=== PATIENT | female | born 1960 | race Two or more races ===

== ENCOUNTER 2023-05-05 19:13 | Emergency (ER) | payer MEDICAID, OTHER ==
[~2023-05-05] VITALS: Ht 160 cm; Wt 55.0 kg
[2023-05-05 20:39] LABS: Basophils # (auto) 0.1 10 ^3/uL (0-0.2); Basophils % (auto) 1.1 % (0.0-2.0); Eosinophils # (auto) 0.3 10 ^3/uL (0-0.8); Eosinophils % (auto) 3.3 % (0.0-7.0); Hematocrit 26.3 % (36.0-46.0); Hemoglobin 8.8 g/dL (12.2-16.2); Lymphocytes # (auto) 2.2 10 ^3/uL (0.4-5.4); Lymphocytes % (auto) 26.5 % (10.0-50.0); Mean Corpuscular Hemoglobin 30.2 pg (28.0-32.0); Mean Corpuscular Hgb Conc. 33.3 g/dL (32.0-36.0); Mean Corpuscular Volume 90.6 fL (80.0-100.0); Monocytes # (auto) 0.7 10 ^3/uL (0-1.3); Monocytes % (auto) 8.9 % (0.0-12.0); Neutrophils # (auto) 4.9 10 ^3/uL (1.6-8.6); Neutrophils % (auto) 60.2 % (37.0-80.0); Red Cell Distribution Width 13.8 % (11.8-14.3); White Blood Cell 8.2 10^3/uL (4.4-10.8)
[2023-05-05 20:50] LABS: Chloride 105 mmol/L (98-107); Potassium 4.1 mmol/L (3.5-5.1); Sodium 138 mmol/L (136-145)
[2023-05-05 20:51] LABS: Anion Gap 11 (5-15); Carbon Dioxide 22 mmol/L (20-30)
[2023-05-05 20:52] LABS: Calcium 8.9 mg/dL (8.5-10.1)
[2023-05-05 20:56] LABS: BUN/Creatinine Ratio 20.7 (10.0-20.0); Glucose 146 mg/dL (74-106)
[2023-05-05 21:27] LABS: Blood Urea Nitrogen 80 mg/dL (9-23)
[2023-05-05 21:35] VITALS: BP 191/78; PULSE 71; RESP 15; TEMP 97.3; O2SAT 99
[2023-05-05] MEDS: ACETAMINOPHEN 500 MG TAB PO ONE (21:35)
[2023-05-05] MEDS: cloNIDine HCL 0.1 MG TAB PO ONE (21:48)
== END 2023-05-05 21:40 | disposition left against medical advice (07) ==
LOC: ER 19:13
DX: N17.9 Acute kidney failure, unspecified (principal); I16.0 Hypertensive urgency; R51.9 Headache, unspecified; R53.1 Weakness; E11.9 Type 2 diabetes mellitus without complications; Z88.0 Allergy status to penicillin
CPT/HCPCS: 36415; 80048; 82962; 84484; 85025; 93005

== ENCOUNTER 2023-11-29 17:50 | Emergency (ER) | payer MEDICAID ==
[~2023-11-29] VITALS: Ht 154.9 cm; Wt 60.0 kg
[2023-11-29 19:30] VITALS: BP 109/46
[2023-11-29 21:03] VITALS: PULSE 55; RESP 14; O2SAT 98
== END 2023-11-29 21:00 | disposition home or self-care (01) ==
LOC: ER 17:50
DX: I95.9 Hypotension, unspecified (principal); I12.0 Hypertensive chronic kidney disease with stage 5 chronic kidney disease or end stage renal disease; E11.22 Type 2 diabetes mellitus with diabetic chronic kidney disease; N18.6 End stage renal disease; Z98.890 Other specified postprocedural states
CPT/HCPCS: 82962

== ENCOUNTER 2024-02-16 17:36 | Inpatient (IN) | payer MEDICAID ==
[~2024-02-16] VITALS: Ht 152.4 cm; Wt 47.0 kg
[2024-02-16] MEDS: InsuLIN REG 1unit/0.01ml Soln (100units/ml) SC SCH (01:30)
[2024-02-16] MEDS: SODIUM CHLORIDE 0.9% 1,000 ML IV ONE (01:30)
[2024-02-16] MEDS: ASPirin 81 mg TAB PO ONE (01:30)
[2024-02-16] MEDS: SEVELAMER 800 MG TAB PO ONE (01:31)
--- NOTE | 2024-02-16 18:29 | ED.PDOC ---
History of Present Illness HPI Comments 63-year-old female who presents to the emergency department with her . With the past 3 hours she has had a gradual onset associated with right upper and lower extremity numbness. No associated weakness. At this time she states the headache has resolved. She has a history of end-stage renal disease on dialysis, Wednesday. She has not missed dialysis. No other complaints. Chief Complaint: Headache Time Seen by MD: 18:17 Reviewed Notes: Medications, Allergies Allergies: Uncoded Allergies: PENICILLIN (Allergy, Unknown, 05/05/23) Information Source: Patient Mode of Arrival: Ambulatory Severity: Moderate Timing: Hours Duration: Since onset Prehospital treatment: None Vital Signs Vital Signs Date Time Temp Pulse Resp B/P (MAP) Pulse Ox O2 Delivery O2 Flow Rate FiO2 02/16/24 18:08 98.0 73 18 161/59 (93) 99 Physical Exam General: Awake, alert and oriented. No acute distress. Skin: Skin in warm, dry and intact. Appropriate color for ethnicity. Nailbeds pink with no cyanosis. HEENT: The head is normocephalic and atraumatic. Conjunctivae are clear without exudates or hemorrhage. Sclera is non-icteric. EOM are intact. No signs of nystagmus. Eyelids are normal in appearance without swelling or lesions. Oral mucosa is pink and moist Neck: The neck is supple with normal range of motion. No JVD. Cardiac: Heart rate and rhythm are normal. No murmurs, gallops, or rubs are au scultated. Respiratory: No signs of respiratory distress. Lung sounds are clear in all lobes bilaterally without rales, ronchi, or wheezes. Abdominal: Abdomen is soft, non-tender without distention. Bowel sounds are present and normoactive in all four quadrants. Extremities: Upper and lower extremities are atraumatic in appearance without deformity or edema. Neurological: The patient is awake, alert and oriented to person, and place only. Speech normal. Speech is clear. There is no facial asymmetry. Patient has chronic bilateral vision loss, unable to complete [id number] test. No upper or lower extremity drift. Sensation in upper and lower extremities intact. Psychiatric: Appropriate mood and affect. Good judgement and insight. No visual or auditory hallucinations. Review of Systems: REVIEW OF SYSTEMS: No fever, no chills, or fatigue HEENT: No sore throat, no earache, no congestion, no neck pain. Cardiac: No chest pain. No palpitations. Lungs: No shortness of breath, no cough. GI: No nausea, no vomiting, no diarrhea, no constipation, no abdominal pain : No dysuria, frequency, or urgency. No hematuria. Musculoskeletal: No joint pain , no joint swelling, no extremity edema. Skin: No rash, no itching. Neuro: Positive headache, no dizziness, no weakness, positive numbness. Chronic difficulty ambulation due to lower back issues. 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 Was a procedure done?: No Differential Dx Considerations may include: Differential diagnoses considered include but are not limited to temporal arteritis, acute angle closure glaucoma, encephalitis, bacterial meningitis, carbon monoxide poisoning, posttraumatic headache, SAH, subdural hematoma, cervical artery dissection, venous sinus thrombosis, CVA, migraine headache, cluster headache, tension headache, TMJ disorder, frontal sinusitis, cervical spondylosis, intracranial mass, pituitary apoplexy. X-Ray, Labs, Meds, VS Vital Signs Date Time Temp Pulse Resp B/P (MAP) Pulse Ox O2 Delivery O2 Flow Rate FiO2 02/16/24 18:08 98.0 73 18 161/59 (93) 99 Lab Test 02/16/24 18:46 Range/Units White Blood Count 6.6 4.4-10.8 10^3/uL Red Blood Count 3.25 L 4.0-5.20 10^6/uL Hemoglobin 10.2 L 12.2-16.2 g/dL Hematocrit 29.1 L 36.0-46.0 % Mean Corpuscular Volume 89.7 80.0-100.0 fL Mean Corpuscular Hemoglobin 31.4 28.0-32.0 pg Mean Corpuscular Hemoglobin Concent 35.0 32.0-36.0 g/dL Red Cell Distribution Width 15.3 H 11.8-14.3 % Platelet Count 194 140-450 10^3/uL Mean Platelet Volume 8.0 6.9-10.8 fL Neutrophils (%) (Auto) 64.3 37.0-80.0 % Lymphocytes (%) (Auto) 21.4 10.0-50.0 % Monocytes (%) (Auto) 11.9 0.0-12.0 % Eosinophils (%) (Auto) 1.6 0.0-7.0 % Basophils (%) (Auto) 0.8 0.0-2.0 % Neutrophils # (Auto) 4.3 1.6-8.6 10 ^3/uL Lymphocytes # (Auto) 1.4 0.4-5.4 10 ^3/uL Monocytes # (Auto) 0.8 0-1.3 10 ^3/uL Eosinophils # (Auto) 0.1 0-0.8 10 ^3/uL Basophils # (Auto) 0.1 0-0.2 10 ^3/uL Nucleated Red Blood Cells 0.0 % Sodium Level 126 L 136-145 mmol/L Potassium Level 4.4 3.5-5.1 mmol/L Chloride Level 91 L 98-107 mmol/L Carbon Dioxide Level 27 20-31 mmol/L Anion Gap 8 5-15 Blood Urea Nitrogen 39 H 9-23 mg/dL Creatinine 3.39 H 0.550-1.02 mg/dL Glomerular Filtration Rate Calc 15 >90 mL/min BUN/Creatinine Ratio 11.5 10.0-20.0 Serum Glucose 127 H 74-106 mg/dL Hemoglobin A1c Pending Serum Osmolality Pending Calcium Level 10.2 8.7-10.4 mg/dL Magnesium Level 2.1 1.6-2.6 mg/dL Iron Level Pending Total Iron Binding Capacity Pending Percent Iron Saturation Pending Ferritin Pending Total Bilirubin 0.3 0.2-1.0 mg/dL Aspartate Amino Transferase (AST) 17 13-40 U/L Alanine Aminotransferase (ALT) 20 7-40 U/L Alkaline Phosphatase 118 H 46-116 U/L Troponin I High Sensitivity 7 </=34 ng/L B-Type Natriuretic Peptide 444.36 0-100 pg/mL Total Protein 7.6 5.7-8.2 g/dL Albumin 4.2 3.2-4.8 g/dL Vitamin B12 Level 785 211-911 pg/mL Folic Acid 11.73 >5.38 ng/mL Thyroid Stimulating Hormone (TSH) 6.67 H 0.55-4.78 uIU/mL Free Thyroxine (T4) Calculated Pending Free Triiodothyronine (T3) pg/mL Pending Time of 1ST Reevaluation: 18:47 Reevaluation 1ST: Unchanged Patient Education/Counseling: Diagnosis, Treatment, Prognosis Family Education/Counseling: No Family Present Departure 1 Departure Time of Disposition: 20:43 Impression: Primary Impression: Hyponatremia Disposition: 09 ADMITTED INPATIENT Condition: Serious Comments 63-year-old female with headache, severe hyponatremia. Patient admitted for further treatment, evaluation and monitoring. Extensive evaluation was performed in attempt to identify or rule out: Temporal arteritis, acute angle closure glaucoma, encephalitis, bacterial meningitis, carbon monoxide poisoning, posttraumatic headache, SAH, subdural hematoma, cervical artery dissection, venous sinus thrombosis, CVA. The following tests were ordered, and results were reviewed by me: (See diagnostic results section) The following test were independently interpreted by me: N/A I reviewed and agreed with the following test results read by other providers: CT head, no acute intracranial hemorrhage I reviewed the following notes from the pt's past medical encounters: (None available at this time) Additional information was gathered from interviewing the following independent historians: Patient's Discussion of management or test interpretation with external physician/other qualified health medicare sales representative: N/A Addressed one or more chronic illnesses with severe exacerbation, progression, or side effects of treatment: End-stage renal disease an acute or chronic illness that poses a threat to life or bodily function: Hyponatremia, headache Decision regarding hospitalization or escalation of hospital level of care: Risk and benefits of admission for further treatment of patient's condition was considered. Due to patient's current clinical condition, high risk of decline and poor outcome if discharged and need for further inpatient management and mo nitoring, patient will be admitted to the hospital. Critical Care Note Critical Care Time?: No Stability Stability form required: No I personally scribed for MATTHIEU FUENTES MD ([email or web address]) on 02/16/24 at 18:29. Electronically submitted by Elieser Jacome ([email or web address]). MATTHIEU FUENTES MD Feb 16, 2024 18:29
[2024-02-16 19:07] LABS: Basophils # (auto) 0.1 10 ^3/uL (0-0.2); Basophils % (auto) 0.8 % (0.0-2.0); Eosinophils # (auto) 0.1 10 ^3/uL (0-0.8); Eosinophils % (auto) 1.6 % (0.0-7.0); Hematocrit 29.1 % (36.0-46.0); Hemoglobin 10.2 g/dL (12.2-16.2); Lymphocytes # (auto) 1.4 10 ^3/uL (0.4-5.4); Lymphocytes % (auto) 21.4 % (10.0-50.0); Mean Corpuscular Hemoglobin 31.4 pg (28.0-32.0); Mean Corpuscular Volume 89.7 fL (80.0-100.0); Monocytes # (auto) 0.8 10 ^3/uL (0-1.3); Monocytes % (auto) 11.9 % (0.0-12.0); Neutrophils # (auto) 4.3 10 ^3/uL (1.6-8.6); Neutrophils % (auto) 64.3 % (37.0-80.0); Platelet Count (auto) 194 10^3/uL (140-450); Red Blood Cells 3.25 10^6/uL (4.0-5.20); Red Cell Distribution Width 15.3 % (11.8-14.3); White Blood Cell 6.6 10^3/uL (4.4-10.8)
[2024-02-16 19:28] LABS: Alanine Aminotransferase 20 U/L (7-40); Anion Gap 8 (5-15); Aspartate Aminotransferase 17 U/L (13-40); BUN/Creatinine Ratio 11.5 (10.0-20.0); Calcium 10.2 mg/dL (8.7-10.4); Carbon Dioxide 27 mmol/L (20-31); Potassium 4.4 mmol/L (3.5-5.1)
[2024-02-16 19:29] LABS: Albumin 4.2 g/dL (3.2-4.8); Bilirubin, Total 0.3 mg/dL (0.2-1.0); Total Protein 7.6 g/dL (5.7-8.2)
[2024-02-16 19:35] LABS: Alkaline Phosphatase 118 U/L (46-116); Blood Urea Nitrogen 39 mg/dL (9-23); Chloride 91 mmol/L (98-107); Glucose 127 mg/dL (74-106); Sodium 126 mmol/L (136-145)
--- NOTE | 2024-02-16 20:27 | DVH ---
EXAM: CT HEAD WITHOUT CONTRAST INDICATION: headache TECHNIQUE: CT of the head without intravenous contrast. Radiation Dose Information: CT Dose: CTDI volume is 55.46 mGy. Dose-length product is 982.13 mGy*cm The dose indicators for CT are the volume Computed Tomography (CT) Dose Index (CTDIvol) and the Dose Length Product (DLP), and are measured in units of mGy and mGy-cm, respectively. These indicators are not patient dose, but values generated from the CT scanner acquisition factors. The report includes radiation exposure data for exposures received during this examination. COMPARISON: None FINDINGS: There is no evidence of acute intracranial hemorrhage, extra-axial collection, mass effect, midline s hift, herniation or hydrocephalus. The ventricles, sulci and cisterns are age appropriate. Ventricular peritoneal shunt tube is in place exiting in the right posterior parietal skull. Ventricles are of normal size. There are no prior lee dies for comparison The harrington-white differentiation is intact. Patchy periventricular and subcortical white matter hypoattenuation is nonspecific but may be related to small vessel ischemic disease. The visualized paranasal sinuses and mastoid air cells are clear. The surrounding soft tissues and osseous structures are unremarkable. IMPRESSION: 1. No acute intracranial hemorrhage 2. Ventriculoperitoneal shunt tube in place exiting the right posterior parietal skull.
[2024-02-16] MEDS ORDERED: NITROGLYCERIN 0.4 MG SL TAB SL PRN (21:15)
[2024-02-16] MEDS ORDERED: ATORVASTATIN 20 MG TAB PO ONE (21:15)
[2024-02-16] MEDS ORDERED: MORPHINE SULFATE INJ 2 MG/ml SYRG IV PRN ×2 (21:15)
[2024-02-16] MEDS ORDERED: ENOXAPARIN SOD 40 MG/0.4 ML SYRINGE SC SCH (21:15)
[2024-02-16] MEDS ORDERED: DEXTROSE (50%) 50ML SYRG IV PRN (21:15)
[2024-02-16] MEDS: SODIUM CHLOR 0.9% PF (SALINE LOCK) 10ML VIAL/SYR IV SCH (22:00)
[2024-02-16] MEDS: ACCU-CHEK COMFORT CURVE STRIP VI SCH (22:00)
--- NOTE | 2024-02-16 22:13 | DVH ---
Carotid Duplex Date: 02/16/2024 09:34 PM Clinical History: headache, right seded numbness Comparison: None Technique: Duplex Doppler evaluation of the extracranial carotid and vertebral arteries including color Doppler and spectral/pulsed waveform analysis was performed. Findings: RIGHT SIDE: The peak systolic velocities are 108.1 cm/s in the distal CCA and 448.2 cm/s in the proximal ICA.The ICA/CCA ratio is 4.4. The external carotid artery is patent with peak systolic velocity of 91.9 cm/s proximally. There is appropriate antegrade flow in the right vertebral artery, 50.3 cm/s LEFT SIDE: The peak systolic velocities are 159.4 cm/s in the distal CCA and 101.3 cm/s in the proximal ICA.. T he ICA/CCA ratio is less than 1. The external carotid artery is patent with peak systolic velocity of 92 cm/s proximally. There is appropriate antegrade flow in the left vertebral artery, 39.8 cm/s IMPRESSION: 1. Greater than 70% stenosis of the right internal carotid. 2. No hemodynamically significant stenosis noted in the left carotid system. 3. Reference: Radiology 2003; 229:340-346
--- NOTE | 2024-02-16 22:52 | DVHHPRES ---
History of Present Illness Resident Creating Document: MISHA ARAUJO RESIDENT History of Present Illness Patient is 63 years old female with past medical history of hypertension, hyperlipidemia, diabetes mellitus type 2, ESRD on hemodialysis on Wednesday//Wednesday, history of stroke 4 month before, ventricular shunt -patient and family could not explain why shunt came with a complaint of right upper and lower limb numbness. Patient and her reported that she started having right leg numbness started with the mid day which was gradual in nature. Patient also reported her right leg is hurting, cramping in nature. Patient able to move her limbs. Patient also endorsed headache starting today, sudden onset, 10/10 in severity, pressure-like, no aggravating or relieving factor. Patient denied any dysarthria or change in acute vision, dysphagia, fever, chest pain, shortness of breath, dysuria, acute joint pain or swelling. Initial lab workup revealed mild anemia with hemoglobin 10.2, hyponatremia with sodium 126, elevated serum creatinine 3.39, GFR 16, blood sugar 127, alkaline phosphatase mildly elevated at 118, troponin I 7, BNP 444.36, other initial lab workup with a normal limit. CT head revealed-. No acute intracranial hemorrhage, Ventriculoperitoneal shunt tube in place exiting the right posterior parietal skull. Past Medical History hypertension, hyperlipidemia, diabetes mellitus type 2, ESRD on hemodialysis on Wednesday//Wednesday, ventricular shunt -patient and family could not explain why shunt, history of stroke 4 month before Past Surgical History Ventricular shunt around 2005-09, right hip surgery Family History Mom and dad both had diabetes mellitus Past Social History Patient denies smoking/alcoholism/drug abuse, lives at home with the Home medications atorvastatin 40 mg q.d., clonidine 0.1 mg, hydralazine 50 mg t.i.d., sevelmer, calcium acetate Review of Systems Review of Systems Allergy- penicillin- Patient was seen today at the bedside. Cardiovascular- deny acute chest pain or shortness of breath or cough or palpitation Respiratory- denies cough or short of breath or wheezing Gastrointestinal- denies any rectal bleeding, nausea or vomiting Musculoskeletal-denies acute joint swelling or tenderness or redness Neurological- denies acute dysarthria, dysphagia, change in vision Psychiatry- denies depression or SI or HI Skin- denies acute rash or purpura Allergies: Uncoded Allergies: PENICILLIN (Allergy, Unknown, 05/05/23) Medications Current Medications Medications Dose Ordered Sig/[place] Route Start Time Stop Time Status Last Admin Dose Admin Sodium Chloride 10 ml Q8HR IV 02/16/24 22:00 Acetaminophen 650 mg Q6HP PRN PO 02/16/24 21:15 Morphine Sulfate 2 mg Q4HPRN PRN IV 02/16/24 21:15 Nitroglycerin 0.4 mg Q5MINP PRN SL 02/16/24 21:15 Morphine Sulfate 2 mg Q30M PRN IV 02/16/24 21:15 Clopidogrel Bisulfate 75 mg DAILY PO 02/17/24 10:00 Aspirin 81 mg DAILY PO 02/17/24 10:00 Atorvastatin Calcium 40 mg HS PO 02/16/24 22:00 Hydralazine HCl 10 mg Q6HP PRN IV 02/16/24 21:15 Diagnostic Test (Pha) 1 strip ACHS 02/16/24 22:00 Insulin Human Regular ACHS SC 02/16/24 22:00 Dextrose 50 ml UD PRN IV 02/16/24 21:15 Enoxaparin Sodium 30 mg DAILY SC 02/17/24 10:00 Exam Vital Signs Vital Signs Date Time Temp Pulse Resp B/P (MAP) Pulse Ox O2 Delivery O2 Flow Rate FiO2 02/16/24 18:08 98.0 73 18 161/59 (93) 99 Exam General examination-awake, alert, oriented, conversive HEENT- PEERLA, no acute nasal discharge Cardiovascular- S1-S2 audible, rate and rhythm regular, no murmur Respiratory- CTAB, no wheeze or rhonchi Gastrointestinal-nontender, bowel sound+. Nondistended Musculoskeletal-no acute joint swelling or tenderness or redness# Lower extremity- no leg edema Neurological- mildly reduced right upper extremity muscle power, no decrease in sensation of the bilateral upper and lower extremity, no other intracranial abnormality Psychiatry- denies depression or SI or HI Skin- fragile skin Labs/Xrays Labs Test 02/16/24 18:46 Range/Units White Blood Count 6.6 4.4-10.8 10^3/uL Red Blood Count 3.25 L 4.0-5.20 10^6/uL Hemoglobin 10.2 L 12.2-16.2 g/dL Hematocrit 29.1 L 36.0-46.0 % Mean Corpuscular Volume 89.7 80.0-100.0 fL Mean Corpuscular Hemoglobin 31.4 28.0-32.0 pg Mean Corpuscular Hemoglobin Concent 35.0 32.0-36.0 g/dL Red Cell Distribution Width 15.3 H 11.8-14.3 % Platelet Count 194 140-450 10^3/uL Mean Platelet Volume 8.0 6.9-10.8 fL Neutrophils (%) (Auto) 64.3 37.0-80.0 % Lymphocytes (%) (Auto) 21.4 10.0-50.0 % Monocytes (%) (Auto) 11.9 0.0-12.0 % Eosinophils (%) (Auto) 1.6 0.0-7.0 % Basophils (%) (Auto) 0.8 0.0-2.0 % Neutrophils # (Auto) 4.3 1.6-8.6 10 ^3/uL Lymphocytes # (Auto) 1.4 0.4-5.4 10 ^3/uL Monocytes # (Auto) 0.8 0-1.3 10 ^3/uL Eosinophils # (Auto) 0.1 0-0.8 10 ^3/uL Basophils # (Auto) 0.1 0-0.2 10 ^3/uL Nucleated Red Blood Cells 0.0 % Sodium Level 126 L 136-145 mmol/L Potassium Level 4.4 3.5-5.1 mmol/L Chloride Level 91 L 98-107 mmol/L Carbon Dioxide Level 27 20-31 mmol/L Anion Gap 8 5-15 Blood Urea Nitrogen 39 H 9-23 mg/dL Creatinine 3.39 H 0.550-1.02 mg/dL Glomerular Filtration Rate Calc 15 >90 mL/min BUN/Creatinine Ratio 11.5 10.0-20.0 Serum Glucose 127 H 74-106 mg/dL Calcium Level 10.2 8.7-10.4 mg/dL Magnesium Level 2.1 1.6-2.6 mg/dL Total Bilirubin 0.3 0.2-1.0 mg/dL Aspartate Amino Transferase (AST) 17 13-40 U/L Alanine Aminotransferase (ALT) 20 7-40 U/L Alkaline Phosphatase 118 H 46-116 U/L Troponin I High Sensitivity 7 </=34 ng/L B-Type Natriuretic Peptide 444.36 0-100 pg/mL Total Protein 7.6 5.7-8.2 g/dL Albumin 4.2 3.2-4.8 g/dL Thyroid Stimulating Hormone (TSH) 6.67 H 0.55-4.78 uIU/mL Assessment/Plan Assessment/Plan #Right upper and lower extremity numbness likely due to TIA -CT head revealed. No acute intracranial hemorrhage, Ventriculoperitoneal shunt tube in place exiting the right posterior parietal skull. -carotid Doppler revealed-1. Greater than 70% stenosis of the right internal carotid. No hemodynamically significant stenosis noted in the left carotid system. -continue aspirin 81 mg p.o. daily -clopidogrel 75 mg p.o. daily -atorvastatin 40 mg q.h.s. -pending echo 2D -ordered of the brain with the contrast for further evaluation and care -neurology consult #Hyponatremia, positive dilutional hyponatremia - Na-126 -ordered urinary osmolality, serum osmolality, urine sodium, uterine Na protein, urinary albumin creatinine ratio for further evaluation -monitor CMP # suspected congestive heart failure -BNP more -continue Lasix 40 mg IV daily -pending echo 2D # right internal carotid artery stenosis -carotid Doppler revealed1- Greater than 70% stenosis of the right internal carotid. No hemodynamically significant stenosis noted in the left carotid system. -continue aspirin 81 mg p.o. daily -continue atorvastatin 40 mg q.h.s. # suspected subclinical hypothyroidism - elevated TSH 6.67 -FT3-2.89, FT4-1.25 -follow up outpatient # hypertension -continue hydralazine 10 mg q.6h p.r.n. -clonidine 0.1 mg p.o. daily #Diabetes mellitus type 2 -continue insulin sliding scale # ESRD on hemodialysis 3 times a week Wednesday//Wednesday -ordered nephrology consult for further evaluation and care #History of stroke -continue aspirin 81 mg daily -atorvastatin 40 mg q.h.s. # anemia of chronic disease -monitor CBC -pending iron panel and serum ferritin # ventricular shunt, family could not explain why -follow up outpatient Goals of care/advance care planning; FULL CODE; discussed with the patient >15 minutes PUD prophylaxis: Pantoprazole DVT prophylaxis: Lovenox Plan discussed with Dr. Chacon, nursing staff, patient Total time spent on patient evaluation, chart review, assessment and plan, discussion discussion >30 minutes Plan discussed with: Patient Plan discussed with: Patient, Spouse, Other (RN) My Orders Orders - MISHA ARAUJO RESIDENT Procedure Category Date Status Time Admit ADMIT 02/16/24 Transmitted 21:06 Code Status CODE 02/16/24 Transmitted 21:06 Renal DIET 02/17/24 Transmitted Standard(2gna,3gk,Lopho) Breakfast Sodium Chloride Lock PHA 02/16/24 In Process (Saline Lock Ns) 22:00 Complete Blood Count LAB 02/17/24 Verified 04:00 Comprehensive LAB 02/17/24 Verified Metabolic Panel 04:00 Cardiac DIET 02/17/24 Transmitted Diet-2gna,Lofat,Lochol Breakfast Echo 2d Mode Cardiac US 02/16/24 Logged DOP 21:06 Carotid Duplx W Color US 02/16/24 Resulted DOP 21:06 Acetaminophen Tablet PHA 02/16/24 In Process (Tylenol Tablet) 21:15 Morphine Sulfate PHA 02/16/24 In Process Injection 21:15 Nitroglycerin PHA 02/16/24 In Process Sublingual (Ntrostat 21:15 Morphine Sulfate PHA 02/16/24 In Process Injection 21:15 Oxygen By Nasal RT 02/16/24 Transmitted Cannula 21:06 Stat Ekg For Chest GARRY 02/16/24 In Process Pain 21:06 Notify Md Of Changes GARRY 02/16/24 In Process From Base 21:06 Mailroom Clerk For GARRY 02/16/24 In Process 24 Hours 21:06 Emergency Dysrhythmia GARRY 02/16/24 In Process Protocol 21:06 Rhythm Strips Once GARRY 02/16/24 In Process Every Shift 21:06 Brain Head Wo Contrast MRI 02/16/24 Logged 21:09 Clopidogrel Bisulfate PHA 02/17/24 In Process (Plavix) 10:00 Atorvastatin (Lipitor) PHA 02/16/24 In Process 22:00 Hydralazine Injection PHA 02/16/24 In Process (Apresoline Inject 21:15 Glucose Blood PHA 02/16/24 In Process (Accu-Chek Comfort 22:00 Insulin R (Human) PHA 02/16/24 In Process (Insulin R) 22:00 Dextrose 50% Syringe PHA 02/16/24 In Process 21:15 *Dr. [facility] CONS 02/16/24 Transmitted -[place] 21:16 Enoxaparin Sodium PHA 02/17/24 In Process (Lovenox) 10:00 Aspirin Tablet PHA 02/17/24 In Process 10:00 Date of Service: Feb 16, 2024 Billing Provider: MARGRET CHACON MD Common Visit Codes: [id number] INP/OBS CARE (HIGH) MISHA ARAUJO RESIDENT Feb 16, 2024 22:52 MARGRET CHACON MD Feb 20, 2024 18:22
[2024-02-16 23:50] LABS: Folate (Folic Acid) 11.73 ng/mL (>5.38)
[2024-02-17] VITALS (10 sets, daily range): BP systolic 103–161; BP diastolic 46–71; PULSE 58–72; RESP 8–19; TEMP 97.4–98.6; O2SAT 97–98
[2024-02-17 00:07] LABS: % Iron Saturation 18.7 % (15-50)
[2024-02-17 00:24] LABS: Free T3 2.89 pg/mL (2.3-4.2); Free T4 (Free Thyroxine) 1.25 ng/dL (0.89-1.76)
[2024-02-17] MEDS: ATORVASTATIN 20 MG TAB PO SCH (01:30)
[2024-02-17] MEDS: PANTOPRAZOLE 40 MG TAB PO ONE (01:30)
[2024-02-17] MEDS: hydrALAZINE HCL 20 MG/ML VL IV PRN (01:32)
[2024-02-17] MEDS: FUROSEMIDE 40 MG/4 ML VIAL IV ONE (02:41)
[2024-02-17] MEDS: amLODIPine BESYLATE 5 MG TAB PO ONE (04:29)
[2024-02-17] MEDS: PANTOPRAZOLE 40 MG TAB PO SCH (06:14)
[2024-02-17 06:47] LABS: Basophils # (auto) 0 10 ^3/uL (0-0.2); Basophils % (auto) 0.8 % (0.0-2.0); Eosinophils # (auto) 0.1 10 ^3/uL (0-0.8); Eosinophils % (auto) 2.1 % (0.0-7.0); Hematocrit 27.3 % (36.0-46.0); Hemoglobin 9.4 g/dL (12.2-16.2); Lymphocytes # (auto) 1.8 10 ^3/uL (0.4-5.4); Lymphocytes % (auto) 30.8 % (10.0-50.0); Mean Corpuscular Hemoglobin 31.4 pg (28.0-32.0); Mean Corpuscular Hgb Conc. 34.5 g/dL (32.0-36.0); Mean Corpuscular Volume 91.1 fL (80.0-100.0); Monocytes # (auto) 0.7 10 ^3/uL (0-1.3); Monocytes % (auto) 12.6 % (0.0-12.0); Neutrophils # (auto) 3.1 10 ^3/uL (1.6-8.6); Neutrophils % (auto) 53.7 % (37.0-80.0); Nucleated Red Blood Cells % 0.1 %; Platelet Count (auto) 175 10^3/uL (140-450); Red Cell Distribution Width 15.5 % (11.8-14.3); White Blood Cell 5.7 10^3/uL (4.4-10.8)
[2024-02-17 06:48] LABS: Alanine Aminotransferase 19 U/L (7-40); Alkaline Phosphatase 107 U/L (46-116); Anion Gap 11 (5-15); Aspartate Aminotransferase 18 U/L (13-40); BUN/Creatinine Ratio 13.2 (10.0-20.0); Bilirubin, Total 0.3 mg/dL (0.2-1.0); Carbon Dioxide 27 mmol/L (20-31); Magnesium 2.3 mg/dL (1.6-2.6); Potassium 4.3 mmol/L (3.5-5.1); Total Protein 6.9 g/dL (5.7-8.2)
[2024-02-17 06:49] LABS: Chloride 91 mmol/L (98-107); Sodium 129 mmol/L (136-145)
[2024-02-17 06:50] LABS: Blood Urea Nitrogen 49 mg/dL (9-23); Calcium 10.6 mg/dL (8.7-10.4); Glucose 120 mg/dL (74-106)
[2024-02-17] MEDS: amLODIPine BESYLATE 5 MG TAB PO SCH (09:03)
[2024-02-17] MEDS: CLOPIDOGREL BISULFATE 75 MG TAB PO SCH (09:04)
[2024-02-17] MEDS: FUROSEMIDE 40 MG/4 ML VIAL IV SCH (09:04)
[2024-02-17] MEDS: ASPirin 81 mg TAB PO SCH (09:04)
[2024-02-17] MEDS: ENOXAPARIN SOD 30 MG/0.3 ML SYRINGE SC SCH (09:05)
--- NOTE | 2024-02-17 10:23 | DVHINCON2 ---
Date of service: Feb 17, [address] Madison Reason for Consultation Right upper and lower extremity numbness History of Present Illness Ms. Donaldson is a 63 years old right-handed female with a history of hypertension, diabetes, end-stage kidney failure, status post REPAIRER CYLINDER HEADS shunt, she was brought to the [facility] on 02/16/2024 with a chief company of headache, at this time, she was alert, oriented to person, place, she knows this is , she was a poor historian She reports she came to the hospital because of headache, the headache was not extreme overall, but was annoying, she was reports having weakness in both arms, she denies lateralized weakness WBC/HB/PLT/MCV, 02/17/2024: 5.7/9.4/175/91.1 Na, 02/16/2024: 126, 02/17/2024: 129 BUN/CR, 02/17/2024: 49/3.7 Liver function tests, 02/17/2016 for: Normal Vitamin B12, 02/2024: 785 Folic acid, 02/28: 11.73 TSH, 02/16/2024: 6.67 Carotid Doppler, 02/16/24: 1. Greater than 70% stenosis of the right internal carotid. 2. No hemodynamically significant stenosis noted in the left carotid system CT head, 02/16/2024: 1. No acute intracranial hemorrhage 2. Ventriculoperitoneal shunt tube in place exiting the right posterior parietal skull Past Medical History Hypertension, diabetes, end-stage renal failure Past Surgical History REPAIRER CYLINDER HEADS shunt around 2005-, right hip surgery Family History: Cerebrovascular accident (CVA) G8 MOTHER Diabetes mellitus G8 MOTHER G8 FATHER Family History Diabetes, stroke Social History Smoker: Non-Smoker Alcohol: Denies ETOH Use Drugs: Denies Drug Use Lives In: Home Allergies: Uncoded Allergies: PENICILLIN (Allergy, Unknown, 05/05/23) Current Medications Current Medications Medications (Trade) Dose Ordered Sig/Wayne Route PRN Reason Start Time Stop Time Status Last Admin Sodium Chloride (Saline Lock Ns) 10 ml Q8HR IV 02/16/24 22:00 02/17/24 06:14 Acetaminophen (Tylenol Tablet) 650 mg Q6HP PRN PO PAIN SCALE 1-3 OR TEMP>100.4 02/16/24 21:15 Morphine Sulfate 2 mg Q4HPRN PRN IV SEVERE PAIN (7-10 PAIN SCALE) 02/16/24 21:15 Enoxaparin Sodium (Lovenox) 40 mg DAILY SC 02/16/24 21:15 02/16/24 21:51 DC Nitroglycerin (Ntrostat Sublingual) 0.4 mg Q5MINP PRN SL FOR CHEST PAIN 02/16/24 21:15 Morphine Sulfate 2 mg Q30M PRN IV FOR CHEST PAIN 02/16/24 21:15 Clopidogrel Bisulfate (Plavix) 75 mg DAILY PO 02/17/24 10:00 02/17/24 09:04 Aspirin 81 mg DAILY PO 02/17/24 10:00 02/17/24 09:04 Atorvastatin Calcium (Lipitor) 40 mg HS PO 02/16/24 22:00 02/17/24 01:30 Hydralazine HCl (Apresoline Injection) 10 mg Q6HP PRN IV SBP>150 02/16/24 21:15 02/17/24 01:32 Diagnostic Test (Pha) (Accu-Chek Comfort Curve T) 1 strip ACHS 02/16/24 22:00 02/17/24 06:15 Insulin Human Regular (InsuLIN R) ACHS SC 02/16/24 22:00 Dextrose 50 ml UD PRN IV Blood Sugar LESS THAN 60 02/16/24 21:15 Enoxaparin Sodium (Lovenox) 30 mg DAILY SC 02/17/24 10:00 02/17/24 09:05 Pantoprazole Sodium (Protonix Tablet) 40 mg DAILY@0600 PO 02/17/24 06:00 02/17/24 06:14 Clonidine HCl (Catapres Tablet) 0.1 mg DAILY PO 02/17/24 10:00 Furosemide (Lasix Injection) 40 mg DAILY IV 02/17/24 10:00 02/17/24 09:04 Amlodipine Besylate (Norvasc Tablet) 5 mg DAILY PO 02/17/24 10:00 02/17/24 09:03 Review of Systems Unobtainable Vital Signs Vital Signs Date Time Temp Pulse Resp B/P (MAP) Pulse Ox O2 Delivery O2 Flow Rate FiO2 02/17/24 09:04 151/71 02/17/24 08:06 97.5 66 17 97 97.5 02/17/24 00:47 Room Air* 0 21 Physical Exam GENERAL EXAM: General: the patient is well developed and nourished. No acute distress. HEENT: Normocephalic, neck is supple, no carotid bruits. No mass. RESPIRATORY: Normal respiratory effort with symmetrical lung expansion. Lungs clear to auscultation. CARDIOVASCULAR: Regular rate and rhythm with no murmurs. S1, S2. ABDOMEN: Soft, nontender, normal bowel sound NEUROLOGICAL: MENTAL STATUS: Awake and alert. Oriented to person, place SPEECH, LANGUAGE, HIGHER CORTICAL FUNCTION: no aphasia or dysathria. CRANIAL NERVES: #2: Intact visual fitzpatrick to confrontation. The optic discs were sharp. #3,4,6: Pupils are equal, round and reactive. EOMs full and conjugate. #5: Facial sensation intact in all three divisions bilaterally. Mandibular strength intact. #7: Facial muscles symmetrical and strength intact. #8: Hearing grossly normal to voice. #9,10: Uvula and soft palate rise in the midline. Swallow and voice are normal. #11: Trapezius and sternomastoid strength intact bilaterally. #12: Tongue midline. No fasciculations or atrophy. SENSATION: Sensation to touch and pinprick is normal. MOTOR: Normal tone in the upper and lower extremity. Normal muscle bulk. No fasciculations. No abnormal movements or posturing. Muscle strength of the major groups in the upper extremities is 5/5. Muscle strength of the major groups in the lower extremities is 5/5. REFLEXES: Deep tendon reflexes are symmetrical. No pathological reflexes. CEREBELLAR/COORDINATION: Finger to nose is normal bilaterally. GAIT/STATION: deferred. Labs/Diagnostic Data Labs Test 02/17/24 05:56 02/17/24 05:39 02/17/24 02:17 02/16/24 18:46 Range/Units POC Glucose 98 70-106 mg/dl White Blood Count 5.7 4.4-10.8 10^3/uL Red Blood Count 3.00 L 4.0-5.20 10^6/uL Hemoglobin 9.4 L 12.2-16.2 g/dL Hematocrit 27.3 L 36.0-46.0 % Mean Corpuscular Volume 91.1 80.0-100.0 fL Mean Corpuscular Hemoglobin 31.4 28.0-32.0 pg Mean Corpuscular Hemoglobin Concent 34.5 32.0-36.0 g/dL Red Cell Distribution Width 15.5 H 11.8-14.3 % Platelet Count 175 140-450 10^3/uL Mean Platelet Volume 8.3 6.9-10.8 fL Neutrophils (%) (Auto) 53.7 37.0-80.0 % Lymphocytes (%) (Auto) 30.8 10.0-50.0 % Monocytes (%) (Auto) 12.6 H 0.0-12.0 % Eosinophils (%) (Auto) 2.1 0.0-7.0 % Basophils (%) (Auto) 0.8 0.0-2.0 % Neutrophils # (Auto) 3.1 1.6-8.6 10 ^3/uL Lymphocytes # (Auto) 1.8 0.4-5.4 10 ^3/uL Monocytes # (Auto) 0.7 0-1.3 10 ^3/uL Eosinophils # (Auto) 0.1 0-0.8 10 ^3/uL Basophils # (Auto) 0 0-0.2 10 ^3/uL Nucleated Red Blood Cells 0.1 % Sodium Level 129 L 136-145 mmol/L Potassium Level 4.3 3.5-5.1 mmol/L Chloride Level 91 L 98-107 mmol/L Carbon Dioxide Level 27 20-31 mmol/L Anion Gap 11 5-15 Blood Urea Nitrogen 49 #H 9-23 mg/dL Creatinine 3.70 H 0.550-1.02 mg/dL Glomerular Filtration Rate Calc 13 >90 mL/min BUN/Creatinine Ratio 13.2 10.0-20.0 Serum Glucose 120 H 74-106 mg/dL Calcium Level 10.6 H 8.7-10.4 mg/dL Magnesium Level 2.3 1.6-2.6 mg/dL Total Bilirubin 0.3 0.2-1.0 mg/dL Aspartate Amino Transferase (AST) 18 13-40 U/L Alanine Aminotransferase (ALT) 19 7-40 U/L Alkaline Phosphatase 107 46-116 U/L Total Protein 6.9 5.7-8.2 g/dL Albumin 4.0 3.2-4.8 g/dL D-Dimer, Quantitative 1.33 H 0.0-0.49 mg/L FEU Hemoglobin A1c 4.9 <5.7 % A1C Serum Osmolality 281 278-298 mOsm/kg Iron Level 40 L 50-170 ug/dL Total Iron Binding Capacity 214 L 250-425 ug/dL Percent Iron Saturation 18.7 15-50 % Ferritin 494.0 H 10-291 ng/mL Troponin I High Sensitivity 7 </=34 ng/L B-Type Natriuretic Peptide 444.36 0-100 pg/mL Vitamin B12 Level 785 211-911 pg/mL Folic Acid 11.73 >5.38 ng/mL Thyroid Stimulating Hormone (TSH) 6.67 H 0.55-4.78 uIU/mL Free Thyroxine (T4) Calculated 1.25 0.89-1.76 ng/dL Free Triiodothyronine (T3) pg/mL 2.89 2.3-4.2 pg/mL Assessment Reports right-sided weakness rule out stroke Headache Status post REPAIRER CYLINDER HEADS shunt Cognitive dysfunction Right internal Carotid stenosis Plan/Recommendation Monitoring Supportive treatment Telemetry Echocardiogram MR brain Aspirin 81 mg daily Lipitor 40 mg daily GI prophylaxis DVT prophylaxis More recommendation per clinical course Prognosis: Poor This medical document was created using an electronic medical record system with [employer] dictation system. Although this document has been carefully reviewed, there may still be some phonetic and typographical errors. These area s are purely typographical due to imperfections of the software programs, and do not reflect any compromise in the patient's medical care. Plan discussed with: Other MANI BURT MD Feb 17, 2024 10:23
[2024-02-17] MEDS: cloNIDine HCL 0.1 MG TAB PO SCH (12:34)
--- NOTE | 2024-02-17 13:27 | DVHPN2 ---
Reviewed: Care Plan, H&P, Labs, Medications, Previous Orders, Radiology Changes from previous H/P or p: No Changes Objective Vitals Vital Signs Date Time Temp Pulse Resp B/P (MAP) Pulse Ox O2 Delivery O2 Flow Rate FiO2 02/17/24 12:34 142/69 02/17/24 11:59 97.4 67 18 97 97.4 02/17/24 08:00 Room Air* 0 21 Intake/Output Intake and Output 02/17/24 07:00 Intake Total 50 ml Balance 50 ml Intake Oral 50 ml Medications Current Medications Medications Dose Ordered Sig/Wayne Route Start Time Stop Time Status Last Admin Dose Admin Sodium Chloride 10 ml Q8HR IV 02/16/24 22:00 02/17/24 06:14 10 ML Acetaminophen 650 mg Q6HP PRN PO 02/16/24 21:15 Morphine Sulfate 2 mg Q4HPRN PRN IV 02/16/24 21:15 Nitroglycerin 0.4 mg Q5MINP PRN SL 02/16/24 21:15 Morphine Sulfate 2 mg Q30M PRN IV 02/16/24 21:15 Clopidogrel Bisulfate 75 mg DAILY PO 02/17/24 10:00 02/17/24 09:04 75 MG Aspirin 81 mg DAILY PO 02/17/24 10:00 02/17/24 09:04 81 MG Atorvastatin Calcium 40 mg HS PO 02/16/24 22:00 02/17/24 01:30 40 MG Hydralazine HCl 10 mg Q6HP PRN IV 02/16/24 21:15 02/17/24 01:32 10 MG Diagnostic Test (Pha) 1 strip ACHS 02/16/24 22:00 02/17/24 11:12 1 STRIP Insulin Human Regular ACHS SC 02/16/24 22:00 02/17/24 11:11 3 UNITS Dextrose 50 ml UD PRN IV 02/16/24 21:15 Enoxaparin Sodium 30 mg DAILY SC 02/17/24 10:00 02/17/24 09:05 30 MG Pantoprazole Sodium 40 mg DAILY@0600 PO 02/17/24 06:00 02/17/24 06:14 40 MG Clonidine HCl 0.1 mg DAILY PO 02/17/24 10:00 02/17/24 12:34 0.1 MG Furosemide 40 mg DAILY IV 02/17/24 10:00 02/17/24 09:04 40 MG Amlodipine Besylate 5 mg DAILY PO 02/17/24 10:00 02/17/24 09:03 5 MG Laboratory Results Laboratory Tests 02/17/24 05:39 Chemistry Test 02/16/24 18:46 02/17/24 05:39 Albumin 4.2 g/dL (3.2-4.8) 4.0 g/dL (3.2-4.8) Calcium Level 10.2 mg/dL (8.7-10.4) 10.6 mg/dL (8.7-10.4) H Magnesium Level 2.1 mg/dL (1.6-2.6) 2.3 mg/dL (1.6-2.6) Total Protein 7.6 g/dL (5.7-8.2) 6.9 g/dL (5.7-8.2) Coagulation Test 02/17/24 02:17 D-Dimer, Quantitative 1.33 mg/L FEU (0.0-0.49) H Cardiac Markers Test 02/16/24 18:46 B-Type Natriuretic Peptide 444.36 pg/mL (0-100) LFT Test 02/16/24 18:46 02/17/24 05:39 Alanine Aminotransferase (ALT) 20 U/L (7-40) 19 U/L (7-40) Alkaline Phosphatase 118 U/L (46-116) H 107 U/L (46-116) Aspartate Amino Transferase (AST) 17 U/L (13-40) 18 U/L (13-40) Total Bilirubin 0.3 mg/dL (0.2-1.0) 0.3 mg/dL (0.2-1.0) HgA1c, TSH Test 02/16/24 18:46 Hemoglobin A1c 4.9 % A1C (<5.7) Thyroid Stimulating Hormone (TSH) 6.67 uIU/mL (0.55-4.78) H Labs and/or images reviewed: Labs reviewed by me, Image(s) reviewed by me Assessment/Plan Assessment/Plan Acute right-sided weakness ruled out TIA echocardiogram result pending, Neurology consult for Dr. 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 bistro attendant Hyponatremia Possible congestive heart failure Diabetes mellitus: Insulin sliding scale Hypertension ESRD on hemodialysis, Nephrology consult Hypercholesterolemia: Lipitor Hypothyroidism History of stroke Anemia of chronic disease History of Ventricular shunt unknown reason Elevated D-dimer 1.33 V/Q scan ordered Time spent 65 minutes Condition guarded Patient is full code Advanced care planning time 20 minutes Plan discussed with: Patient My Orders Orders - DEMARCO VILLA MD Procedure Category Date Status Time Nm Vq Scan NM 02/17/24 Transmitted 13:19 Date of Service: Feb 17, 2024 Billing Provider: DEMARCO VILLA MD Common Visit Codes: [id number] CARE 30-74 MIN DEMARCO VILLA MD Feb 17, 2024 13:27
--- NOTE | 2024-02-17 13:37 | DVHSR ---
APPROVED REPORT EXAM: Two-dimensional and M-mode echocardiogram with Doppler and color Doppler. Blood Pressure: 106/68 mmHg INDICATION Headache, right sided numbness RISK FACTORS Height: 60, Weight: 130 DIMENSIONS LVDd4.2 (3.8-5.7cm)LA (2D)3.8 (1.9-4.0cm)Aortic Root2.8 (2.0-3.7cm) LVDs2.6 (2.5-4.0cm)LA (MM) (1.9-4.0cm)Aortic Cusp Exc1.6 (1.5-2.0cm) EF (%) 70.0 (55-70%)Rt. Atrium3.7 (1.9-4.0cm)Asc. Aorta cm IVSd1.0 (0.7-1.1cm)RV (D) (1.8-2.4cm) PWd1.1 (0.7-1.1cm) Mitral Valve MitralMitral Stenosis E wave0.84m/sMV Mean GR.mmHg A wave0.94m/sMV Peak GR.104mmHg E/A ratio0.92D MVAcm2 DECEL [id number] 1/2 [id number] IVRTmsDop MVA2.51cm2 Aortic Valve Aortic ValveAortic Stenosis V11.13m/Tyler Mean GR.7mmHg V21.94m/Tyler Peak GR.15mmHg LVOT Diameter1.5 (1.8-2.4cm)Doppler AVA1.03cm2 Pulmonic Valve V20.92m/s Tricuspid Valve TR Velocity2.74m/s [id number] Other Information Technically limited study due to body habitus and patient position. Conclusion Normal left ventricular size and dimension. Normal left ventricular systolic function estimated ejec tion fraction of 60%. There is a grade 1 diastolic dysfunction. Normal right ventricular size and dimension. Normal right ventricular systolic function. Normal biatrial size and dimension. There is mild aortic valve sclerosis. Normal mitral valve structure and function. Normal tricuspid valve structure and function. The pulmonary valve is grossly normal. No pericardial effusion.
--- NOTE | 2024-02-17 15:49 | DVHINCON2 ---
Date of service: Feb 17, [address] Garcia Reason for Consultation End-stage kidney disease History of Present Illness This is a 63-year-old female with history of end-stage kidney disease on hemodialysis, type 2 diabetes, hypertension, hyperlipidemia, history of CAMPUS MONITOR shunt placement brought into the emergency room because of right leg numbness. Initial evaluation in the emergency room included a CT of the head which did not show any acute intracranial pathology. Admitted for further evaluation by the neurologist. Nephrology consulted for continuation of dialysis. Last dialysis was on Wednesday. Past Medical History Past Medical History As stated above Past Surgical History dialysis access CAMPUS MONITOR shunt Family History: Cerebrovascular accident (CVA) G8 MOTHER Diabetes mellitus G8 MOTHER G8 FATHER Social History No active history of smoking, alcohol or drug abuse Allergies: Uncoded Allergies: PENICILLIN (Allergy, Unknown, 05/05/23) Current Medications Current Medications Medications (Trade) Dose Ordered Sig/Wayne Route PRN Reason Start Time Stop Time Status Last Admin Sodium Chloride (Saline Lock Ns) 10 ml Q8HR IV 02/16/24 22:00 02/17/24 06:14 Acetaminophen (Tylenol Tablet) 650 mg Q6HP PRN PO PAIN SCALE 1-3 OR TEMP>100.4 02/16/24 21:15 Morphine Sulfate 2 mg Q4HPRN PRN IV SEVERE PAIN (7-10 PAIN SCALE) 02/16/24 21:15 Enoxaparin Sodium (Lovenox) 40 mg DAILY SC 02/16/24 21:15 02/16/24 21:51 DC Nitroglycerin (Ntrostat Sublingual) 0.4 mg Q5MINP PRN SL FOR CHEST PAIN 02/16/24 21:15 Morphine Sulfate 2 mg Q30M PRN IV FOR CHEST PAIN 02/16/24 21:15 Clopidogrel Bisulfate (Plavix) 75 mg DAILY PO 02/17/24 10:00 02/17/24 09:04 Aspirin 81 mg DAILY PO 02/17/24 10:00 02/17/24 09:04 Atorvastatin Calcium (Lipitor) 40 mg HS PO 02/16/24 22:00 02/17/24 01:30 Hydralazine HCl (Apresoline Injection) 10 mg Q6HP PRN IV SBP>150 02/16/24 21:15 02/17/24 01:32 Diagnostic Test (Pha) (Accu-Chek Comfort Curve T) 1 strip ACHS 02/16/24 22:00 02/17/24 11:12 Insulin Human Regular (InsuLIN R) ACHS SC 02/16/24 22:00 02/17/24 11:11 Dextrose 50 ml UD PRN IV Blood Sugar LESS THAN 60 02/16/24 21:15 Enoxaparin Sodium (Lovenox) 30 mg DAILY SC 02/17/24 10:00 02/17/24 09:05 Pantoprazole Sodium (Protonix Tablet) 40 mg DAILY@0600 PO 02/17/24 06:00 02/17/24 06:14 Clonidine HCl (Catapres Tablet) 0.1 mg DAILY PO 02/17/24 10:00 02/17/24 12:34 Furosemide (Lasix Injection) 40 mg DAILY IV 02/17/24 10:00 02/17/24 09:04 Amlodipine Besylate (Norvasc Tablet) 5 mg DAILY PO 02/17/24 10:00 02/17/24 09:03 Review of Systems 12 point review of systems negative except as stated in the HPI Vital Signs Vital Signs Date Time Temp Pulse Resp B/P (MAP) Pulse Ox O2 Delivery O2 Flow Rate FiO2 02/17/24 12:34 142/69 02/17/24 11:59 97.4 67 18 97 97.4 02/17/24 08:00 Room Air* 0 21 Physical Exam Awake but disoriented HEENT: Normocephalic Lungs: Bilateral good air entry CVS: S1, S2 regular rate rhythm Abdomen: Soft, bowel sounds present SNOWBOARD INSTRUCTOR: No focal deficits Extremities: No edema. Labs/Diagnostic Data Labs Test 02/17/24 11:03 02/17/24 05:39 02/17/24 02:17 02/16/24 18:46 Range/Units POC Glucose 200 H 70-106 mg/dl White Blood Count 5.7 4.4-10.8 10^3/uL Red Blood Count 3.00 L 4.0-5.20 10^6/uL Hemoglobin 9.4 L 12.2-16.2 g/dL Hematocrit 27.3 L 36.0-46.0 % Mean Corpuscular Volume 91.1 80.0-100.0 fL Mean Corpuscular Hemoglobin 31.4 28.0-32.0 pg Mean Corpuscular Hemoglobin Concent 34.5 32.0-36.0 g/dL Red Cell Distribution Width 15.5 H 11.8-14.3 % Platelet Count 175 140-450 10^3/uL Mean Platelet Volume 8.3 6.9-10.8 fL Neutrophils (%) (Auto) 53.7 37.0-80.0 % Lymphocytes (%) (Auto) 30.8 10.0-50.0 % Monocytes (%) (Auto) 12.6 H 0.0-12.0 % Eosinophils (%) (Auto) 2.1 0.0-7.0 % Basophils (%) (Auto) 0.8 0.0-2.0 % Neutrophils # (Auto) 3.1 1.6-8.6 10 ^3/uL Lymphocytes # (Auto) 1.8 0.4-5.4 10 ^3/uL Monocytes # (Auto) 0.7 0-1.3 10 ^3/uL Eosinophils # (Auto) 0.1 0-0.8 10 ^3/uL Basophils # (Auto) 0 0-0.2 10 ^3/uL Nucleated Red Blood Cells 0.1 % Sodium Level 129 L 136-145 mmol/L Potassium Level 4.3 3.5-5.1 mmol/L Chloride Level 91 L 98-107 mmol/L Carbon Dioxide Level 27 20-31 mmol/L Anion Gap 11 5-15 Blood Urea Nitrogen 49 #H 9-23 mg/dL Creatinine 3.70 H 0.550-1.02 mg/dL Glomerular Filtration Rate Calc 13 >90 mL/min BUN/Creatinine Ratio 13.2 10.0-20.0 Serum Glucose 120 H 74-106 mg/dL Calcium Level 10.6 H 8.7-10.4 mg/dL Magnesium Level 2.3 1.6-2.6 mg/dL Total Bilirubin 0.3 0.2-1.0 mg/dL Aspartate Amino Transferase (AST) 18 13-40 U/L Alanine Aminotransferase (ALT) 19 7-40 U/L Alkaline Phosphatase 107 46-116 U/L Total Protein 6.9 5.7-8.2 g/dL Albumin 4.0 3.2-4.8 g/dL D-Dimer, Quantitative 1.33 H 0.0-0.49 mg/L FEU Hemoglobin A1c 4.9 <5.7 % A1C Serum Osmolality 281 278-298 mOsm/kg Iron Level 40 L 50-170 ug/dL Total Iron Binding Capacity 214 L 250-425 ug/dL Percent Iron Saturation 18.7 15-50 % Ferritin 494.0 H 10-291 ng/mL Troponin I High Sensitivity 7 </=34 ng/L B-Type Natriuretic Peptide 444.36 0-100 pg/mL Vitamin B12 Level 785 211-911 pg/mL Folic Acid 11.73 >5.38 ng/mL Thyroid Stimulating Hormone (TSH) 6.67 H 0.55-4.78 uIU/mL Free Thyroxine (T4) Calculated 1.25 0.89-1.76 ng/dL Free Triiodothyronine (T3) pg/mL 2.89 2.3-4.2 pg/mL Assessment End-stage kidney disease on hemodialysis Rule out CVA Type 2 diabetes Hypertension Hyperlipidemia Plan/Recommendation Hemodialysis tomorrow with ultrafiltration of up to 2.5 L as tolerated. Plan discussed with: Other DANIEL WAKEFIELD MD Feb 17, 2024 15:49
--- NOTE | 2024-02-17 17:59 | DVH ---
NUCLEAR MEDICINE VENTILATION/PERFUSION LUNG SCAN. INDICATION: r/o PULMONARY EMBOLISM COMPARISON: None TECHNIQUE: Following intravenous demonstration of 4.7 millicuries of technetium 99m MAA. FINDINGS: There is normal uptake of radionuclide on perfusion portions of the examination. IMPRESSION: 1. Low probability for PE.
[2024-02-18] VITALS (8 sets, daily range): BP systolic 127–147; BP diastolic 45–64; PULSE 55–67; RESP 16–19; TEMP 97.3–98; O2SAT 96–100
[2024-02-18] MEDS ORDERED: SODIUM CHL 0.9% 1000 ML BAG XX ONE (07:00)
[2024-02-18 07:37] LABS: Triglycerides 33 mg/dL (< 150)
[2024-02-18 07:38] LABS: LDL Cholesterol 95 mg/dL (< 100)
[2024-02-18 07:39] LABS: Cholesterol 179 mg/dL (< 200); HDL Cholesterol 61 mg/dL (40-59)
--- NOTE | 2024-02-18 09:13 | DVHPN2 ---
Reviewed: Care Plan, H&P, Labs, Medications, Previous Orders, Radiology Changes from previous H/P or p: No Changes Objective Vitals Vital Signs Date Time Temp Pulse Resp B/P (MAP) Pulse Ox O2 Delivery O2 Flow Rate FiO2 02/18/24 05:21 98.0 63 19 147/60 (89) 97 98.0 02/17/24 20:00 Room Air* 0 21 Intake/Output Intake and Output 02/18/24 07:00 Intake Total 400 ml Output Total 400 ml Balance 0 ml Intake Oral 400 ml Output Urine Total 400 ml Medications Current Medications Medications Dose Ordered Sig/Wayne Route Start Time Stop Time Status Last Admin Dose Admin Sodium Chloride 10 ml Q8HR IV 02/16/24 22:00 02/18/24 06:14 10 ML Acetaminophen 650 mg Q6HP PRN PO 02/16/24 21:15 Morphine Sulfate 2 mg Q4HPRN PRN IV 02/16/24 21:15 Nitroglycerin 0.4 mg Q5MINP PRN SL 02/16/24 21:15 Morphine Sulfate 2 mg Q30M PRN IV 02/16/24 21:15 Clopidogrel Bisulfate 75 mg DAILY PO 02/17/24 10:00 02/17/24 09:04 75 MG Aspirin 81 mg DAILY PO 02/17/24 10:00 02/17/24 09:04 81 MG Atorvastatin Calcium 40 mg HS PO 02/16/24 22:00 02/17/24 21:28 40 MG Hydralazine HCl 10 mg Q6HP PRN IV 02/16/24 21:15 02/17/24 01:32 10 MG Diagnostic Test (Pha) 1 strip ACHS 02/16/24 22:00 02/18/24 06:15 1 STRIP Insulin Human Regular ACHS SC 02/16/24 22:00 02/18/24 06:14 2 UNITS Dextrose 50 ml UD PRN IV 02/16/24 21:15 Enoxaparin Sodium 30 mg DAILY SC 02/17/24 10:00 02/17/24 09:05 30 MG Pantoprazole Sodium 40 mg DAILY@0600 PO 02/17/24 06:00 02/18/24 06:10 40 MG Clonidine HCl 0.1 mg DAILY PO 02/17/24 10:00 02/17/24 12:34 0.1 MG Furosemide 40 mg DAILY IV 02/17/24 10:00 02/17/24 09:04 40 MG Amlodipine Besylate 5 mg DAILY PO 02/17/24 10:00 02/17/24 09:03 5 MG Laboratory Results Laboratory Tests 02/17/24 05:39 Lipid panel Test 02/18/24 06:21 Cholesterol Level 179 mg/dL (< 200) HDL Cholesterol 61 mg/dL (40-59) H Triglycerides Level 33 mg/dL (< 150) Labs and/or images reviewed: Labs reviewed by me, Image(s) reviewed by me Assessment/Plan Assessment/Plan Acute right-sided weakness ruled out TIA echocardiogram 60% ejection Neurology consult for Dr. 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 [facility] -Da CONS 02/17/24 Transmitted Rosraio 14:31 * Cardiology Consult CONS 02/18/24 Verified 09:06 Date of Service: Feb 18, 2024 Billing Provider: DEMARCO VILLA MD Common Visit Codes: [id number] CARE 30-74 MIN DEMARCO VILLA MD Feb 18, 2024 09:13
--- NOTE | 2024-02-18 13:34 | DVHINCON2 ---
Date of service: Feb 18, 2024 History of Present Illness 63 yo F with hx of ESRD on HD, COMMERCIAL ARTIST LETTERING shunt, admitted for Right sided weakness. her US showed high grade stenosis to ZEFERINO. Past Medical History reviewed Family History: Cerebrovascular accident (CVA) G8 MOTHER Diabetes mellitus G8 MOTHER G8 FATHER Allergies: Uncoded Allergies: PENICILLIN (Allergy, Unknown, 05/05/23) Review of Systems not obtained, pt confused, family at bedside Vital Signs Vital Signs Date Time Temp Pulse Resp B/P (MAP) Pulse Ox O2 Delivery O2 Flow Rate FiO2 02/18/24 11:54 130/56 02/18/24 09:44 97.3 61 18 96 97.3 02/18/24 08:00 Room Air* 0 21 Physical Exam nad s1 s2 rrr ctab soft nt/nd no edema Labs/Diagnostic Data Labs Test 02/18/24 11:27 02/18/24 06:21 02/17/24 05:39 02/17/24 02:17 Range/Units POC Glucose 147 H 70-106 mg/dl Triglycerides Level 33 < 150 mg/dL Cholesterol Level 179 < 200 mg/dL LDL Cholesterol 95 < 100 mg/dL HDL Cholesterol 61 H 40-59 mg/dL White Blood Count 5.7 4.4-10.8 10^3/uL Red Blood Count 3.00 L 4.0-5.20 10^6/uL Hemoglobin 9.4 L 12.2-16.2 g/dL Hematocrit 27.3 L 36.0-46.0 % Mean Corpuscular Volume 91.1 80.0-100.0 fL Mean Corpuscular Hemoglobin 31.4 28.0-32.0 pg Mean Corpuscular Hemoglobin Concent 34.5 32.0-36.0 g/dL Red Cell Distribution Width 15.5 H 11.8-14.3 % Platelet Count 175 140-450 10^3/uL Mean Platelet Volume 8.3 6.9-10.8 fL Neutrophils (%) (Auto) 53.7 37.0-80.0 % Lymphocytes (%) (Auto) 30.8 10.0-50.0 % Monocytes (%) (Auto) 12.6 H 0.0-12.0 % Eosinophils (%) (Auto) 2.1 0.0-7.0 % Basophils (%) (Auto) 0.8 0.0-2.0 % Neutrophils # (Auto) 3.1 1.6-8.6 10 ^3/uL Lymphocytes # (Auto) 1.8 0.4-5.4 10 ^3/uL Monocytes # (Auto) 0.7 0-1.3 10 ^3/uL Eosinophils # (Auto) 0.1 0-0.8 10 ^3/uL Basophils # (Auto) 0 0-0.2 10 ^3/uL Nucleated Red Blood Cells 0.1 % Sodium Level 129 L 136-145 mmol/L Potassium Level 4.3 3.5-5.1 mmol/L Chloride Level 91 L 98-107 mmol/L Carbon Dioxide Level 27 20-31 mmol/L Anion Gap 11 5-15 Blood Urea Nitrogen 49 #H 9-23 mg/dL Creatinine 3.70 H 0.550-1.02 mg/dL Glomerular Filtration Rate Calc 13 >90 mL/min BUN/Creatinine Ratio 13.2 10.0-20.0 Serum Glucose 120 H 74-106 mg/dL Calcium Level 10.6 H 8.7-10.4 mg/dL Magnesium Level 2.3 1.6-2.6 mg/dL Total Bilirubin 0.3 0.2-1.0 mg/dL Aspartate Amino Transferase (AST) 18 13-40 U/L Alanine Aminotransferase (ALT) 19 7-40 U/L Alkaline Phosphatase 107 46-116 U/L Total Protein 6.9 5.7-8.2 g/dL Albumin 4.0 3.2-4.8 g/dL D-Dimer, Quantitative 1.33 H 0.0-0.49 mg/L FEU Test 02/16/24 18:46 Range/Units Hemoglobin A1c 4.9 <5.7 % A1C Serum Osmolality 281 278-298 mOsm/kg Iron Level 40 L 50-170 ug/dL Total Iron Binding Capacity 214 L 250-425 ug/dL Percent Iron Saturation 18.7 15-50 % Ferritin 494.0 H 10-291 ng/mL Troponin I High Sensitivity 7 </=34 ng/L B-Type Natriuretic Peptide 444.36 0-100 pg/mL Vitamin B12 Level 785 211-911 pg/mL Folic Acid 11.73 >5.38 ng/mL Thyroid Stimulating Hormone (TSH) 6.67 H 0.55-4.78 uIU/mL Free Thyroxine (T4) Calculated 1.25 0.89-1.76 ng/dL Free Triiodothyronine (T3) pg/mL 2.89 2.3-4.2 pg/mL Assessment high grade carotid stenosis > 90% by velocity htn esrd on hd R sided weakness hx of COMMERCIAL ARTIST LETTERING shunt Plan/Recommendation pt will likely need carotid revasc with either tcar vs stenting, i would recommend this be at [place] given hx of COMMERCIAL ARTIST LETTERING shunt and would need NSGY input on neuro interventional options cont asa, statin prognosis is poor Plan discussed with: Patient, Spouse NICOLA PENG MD Feb 18, 2024 13:34
[2024-02-18] MEDS ORDERED: CALC667C PO (13:56)
--- NOTE | 2024-02-18 16:52 | DVHPN2 ---
Progress Note - Dictate Date Seen: Feb 18, 2024 Medical Necessity Reason Pt with a Central, PICC or Fol: No Subjective Underwent dialysis today. UF of 2.5 L. vital signs Vital Sign Date Time Temp Pulse Resp B/P (MAP) Pulse Ox O2 Delivery O2 Flow Rate FiO2 02/18/24 16:37 98.0 61 18 127/55 (79) 98 98.0 02/18/24 08:00 Room Air* 0 21 Total Intake and Output 02/17/24 02/17/24 02/18/24 14:59 22:59 06:59 Intake Total 200 ml 200 ml Output Total 400 ml Balance 200 ml -200 ml medications Current Medications Medications Dose Ordered Sig/Wayne Route Start Time Stop Time Status Last Admin Dose Admin Sodium Chloride 10 ml Q8HR IV 02/16/24 22:00 02/18/24 14:00 10 ML Acetaminophen 650 mg Q6HP PRN PO 02/16/24 21:15 Morphine Sulfate 2 mg Q4HPRN PRN IV 02/16/24 21:15 Nitroglycerin 0.4 mg Q5MINP PRN SL 02/16/24 21:15 Morphine Sulfate 2 mg Q30M PRN IV 02/16/24 21:15 Clopidogrel Bisulfate 75 mg DAILY PO 02/17/24 10:00 02/18/24 11:53 75 MG Aspirin 81 mg DAILY PO 02/17/24 10:00 02/18/24 11:52 81 MG Atorvastatin Calcium 40 mg HS PO 02/16/24 22:00 02/17/24 21:28 40 MG Hydralazine HCl 10 mg Q6HP PRN IV 02/16/24 21:15 02/17/24 01:32 10 MG Diagnostic Test (Pha) 1 strip ACHS 02/16/24 22:00 02/18/24 16:24 1 STRIP Insulin Human Regular ACHS SC 02/16/24 22:00 02/18/24 12:05 2 UNITS Dextrose 50 ml UD PRN IV 02/16/24 21:15 Enoxaparin Sodium 30 mg DAILY SC 02/17/24 10:00 02/18/24 11:52 30 MG Pantoprazole Sodium 40 mg DAILY@0600 PO 02/17/24 06:00 02/18/24 06:10 40 MG Clonidine HCl 0.1 mg DAILY PO 02/17/24 10:00 02/18/24 11:54 0.1 MG Furosemide 40 mg DAILY IV 02/17/24 10:00 02/17/24 09:04 40 MG Amlodipine Besylate 5 mg DAILY PO 02/17/24 10:00 02/18/24 11:53 5 MG objective Awake but disoriented HEENT: Normocephalic Lungs: Bilateral good air entry CVS: S1, S2 regular rate rhythm Abdomen: Soft, bowel sounds present 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 laboratory and microbiology Laboratory Tests 02/17/24 05:39 Test 02/17/24 05:39 Range/Units Serum Glucose 120 H 74-106 mg/dL Problem List End-stage kidney disease on hemodialysis Rule out CVA Type 2 diabetes Hypertension Hyperlipidemia History of DEPENDENCY PROGRAM DIRECTOR shunt Right ICA stenosis Assessment/Plan We will continue dialysis on Wednesday schedule. Further workup as per Neurology and Cardiology. Plan discussed with: DANIEL Mei MD Feb 18, 2024 16:52
[2024-02-18] MEDS: EPOETIN ALFA-EPBX 4,000 UNIT/ML VIAL SC ONE (21:14)
--- NOTE | 2024-02-18 22:08 | DVHPN2 ---
Progress Note - Dictate Date Seen: Feb 18, 2024 Medical Necessity Reason Pt with a Central, PICC or Fol: No Subjective Ms. Donaldson is a 63 years old right-handed female with a history of hypertension, diabetes, end-stage kidney failure, status post REFERENCE TEST CLERK shunt, she was brought to the [facility] on 02/16/2024 with a chief company of headache I have seen and examined the patient along with her nurse, she was doing fine, no new complaints The case was discussed with Dr. Brown The nature of her shunt is unclear, as a result MRI was not obtained On physical examination, I do not confirmed focal weakness WBC/HB/PLT/MCV, 02/17/2024: 5.7/9.4/175/91.1 Na, 02/16/2024: 126, 02/17/2024: 129 BUN/CR, 02/17/2024: 49/3.7 Liver function tests, 02/17/2016 for: Normal Vitamin B12, 02/2024: 785 Folic acid, 02/28: 11.73 TSH, 02/16/2024: 6.67 Echocardiogram, 02/17/2024: Normal left ventricular size and dimension. Normal left ventricular systolic function estimated ejection fraction of 60%. There is a grade 1 diastolic dysfunction. Normal right ventricular size and dimension. Normal right ventricular systolic function. Normal biatrial size and dimension. There is mild aortic valve sclerosis. Normal mitral valve structure and function. Normal tricuspid valve structure and function. The pulmonary valve is grossly normal. No pericardial effusion. Carotid Doppler, 02/16/24: 1. Greater than 70% stenosis of the right internal carotid. 2. No hemodynamically significant stenosis noted in the left carotid system CT head, 02/16/2024: 1. No acute intracranial hemorrhage 2. Ventriculoperitoneal shunt tube in place exiting the right posterior parietal skull vital signs Vital Sign Date Time Temp Pulse Resp B/P (MAP) Pulse Ox O2 Delivery O2 Flow Rate FiO2 02/18/24 16:37 98.0 61 18 127/55 (79) 98 98.0 02/18/24 08:00 Room Air* 0 21 Total Intake and Output 02/17/24 02/17/24 02/18/24 15:00 23:00 07:00 Intake Total 200 ml 200 ml Output Total 400 ml Balance 200 ml -200 ml medications Current Medications Medications Dose Ordered Sig/Wayne Route Start Time Stop Time Status Last Admin Dose Admin Sodium Chloride 10 ml Q8HR IV 02/16/24 22:00 02/18/24 21:10 10 ML Acetaminophen 650 mg Q6HP PRN PO 02/16/24 21:15 Morphine Sulfate 2 mg Q4HPRN PRN IV 02/16/24 21:15 Nitroglycerin 0.4 mg Q5MINP PRN SL 02/16/24 21:15 Morphine Sulfate 2 mg Q30M PRN IV 02/16/24 21:15 Clopidogrel Bisulfate 75 mg DAILY PO 02/17/24 10:00 02/18/24 11:53 75 MG Aspirin 81 mg DAILY PO 02/17/24 10:00 02/18/24 11:52 81 MG Atorvastatin Calcium 40 mg HS PO 02/16/24 22:00 02/18/24 21:06 40 MG Hydralazine HCl 10 mg Q6HP PRN IV 02/16/24 21:15 02/17/24 01:32 10 MG Diagnostic Test (Pha) 1 strip ACHS 02/16/24 22:00 02/18/24 16:24 1 STRIP Insulin Human Regular ACHS SC 02/16/24 22:00 02/18/24 12:05 2 UNITS Dextrose 50 ml UD PRN IV 02/16/24 21:15 Enoxaparin Sodium 30 mg DAILY SC 02/17/24 10:00 02/18/24 11:52 30 MG Pantoprazole Sodium 40 mg DAILY@0600 PO 02/17/24 06:00 02/18/24 06:10 40 MG Clonidine HCl 0.1 mg DAILY PO 02/17/24 10:00 02/18/24 11:54 0.1 MG Furosemide 40 mg DAILY IV 02/17/24 10:00 02/17/24 09:04 40 MG Amlodipine Besylate 5 mg DAILY PO 02/17/24 10:00 02/18/24 11:53 5 MG objective General: the patient is well developed and nourished. No acute distress. MENTAL STATUS: Awake and alert. Oriented to person, place SPEECH, LANGUAGE, HIGHER CORTICAL FUNCTION: no aphasia or dysathria. CRANIAL NERVES: Pupils are equal, round and reactive. EOMs full and conjugate. Facial sensation intact in all three divisions bilaterally. Mandibular strength intact. Facial muscles symmetrical and strength intact. SENSATION: Sensation to touch and pinprick is normal. MOTOR: Normal tone in the upper and lower extremity. Normal muscle bulk. No fasciculations. No abnormal movements or posturing. Muscle strength of the major groups in the extremities is 4-5/5 with no drift. REFLEXES: Deep tendon reflexes are symmetrical. No pathological reflexes. CEREBELLAR/COORDINATION: Finger to nose is normal bilaterally. GAIT/STATION: deferred laboratory and microbiology Laboratory Tests 02/17/24 05:39 Test 02/17/24 05:39 Range/Units Serum Glucose 120 H 74-106 mg/dL Problem List Reports right-sided weakness rule out stroke Headache Status post REFERENCE TEST CLERK shunt Cognitive dysfunction Right internal Carotid stenosis Assessment/Plan Monitoring Supportive treatment Telemetry MR brain Aspirin 81 mg daily Lipitor 40 mg daily GI prophylaxis DVT prophylaxis Further address the carotid stenosis with [facility] More recommendation per clinical course This medical document was created using an electronic medical record system with panOpen dictation system. Although this document has been carefully reviewed, there may still be some phonetic and typographical errors. These areas are purely typographical due to imperfections of the software programs, and do not reflect any compromise in the patient's medical care. Prognosis poor Plan discussed with: Patient, Other Total Time (mins): 35 MANI BURT MD Feb 18, 2024 22:08
[2024-02-19] VITALS (8 sets, daily range): BP systolic 126–147; BP diastolic 36–61; PULSE 54–63; RESP 16–20; TEMP 97.4–98.6; O2SAT 93–97
--- NOTE | 2024-02-19 08:08 | DVHPN2 ---
Progress Note - Dictate Date Seen: Feb 19, 2024 Medical Necessity Reason Pt with a Central, PICC or Fol: No Subjective No acute issues overnight vital signs Vital Sign Date Time Temp Pulse Resp B/P (MAP) Pulse Ox O2 Delivery O2 Flow Rate FiO2 02/19/24 05:00 97.6 58 16 147/56 (86) 94 97.6 02/18/24 20:00 Room Air* 0 21 Total Intake and Output 02/18/24 02/18/24 02/19/24 15:00 23:00 07:00 Intake Total 900 ml 400 ml Output Total 0 ml Balance 900 ml 400 ml medications Current Medications Medications Dose Ordered Sig/Wayne Route Start Time Stop Time Status Last Admin Dose Admin Sodium Chloride 10 ml Q8HR IV 02/16/24 22:00 02/19/24 06:07 10 ML Acetaminophen 650 mg Q6HP PRN PO 02/16/24 21:15 Morphine Sulfate 2 mg Q4HPRN PRN IV 02/16/24 21:15 Nitroglycerin 0.4 mg Q5MINP PRN SL 02/16/24 21:15 Morphine Sulfate 2 mg Q30M PRN IV 02/16/24 21:15 Clopidogrel Bisulfate 75 mg DAILY PO 02/17/24 10:00 02/18/24 11:53 75 MG Aspirin 81 mg DAILY PO 02/17/24 10:00 02/18/24 11:52 81 MG Atorvastatin Calcium 40 mg HS PO 02/16/24 22:00 02/18/24 21:06 40 MG Hydralazine HCl 10 mg Q6HP PRN IV 02/16/24 21:15 02/17/24 01:32 10 MG Diagnostic Test (Pha) 1 strip ACHS 02/16/24 22:00 02/19/24 06:08 1 STRIP Insulin Human Regular ACHS SC 02/16/24 22:00 02/18/24 12:05 2 UNITS Dextrose 50 ml UD PRN IV 02/16/24 21:15 Enoxaparin Sodium 30 mg DAILY SC 02/17/24 10:00 02/18/24 11:52 30 MG Pantoprazole Sodium 40 mg DAILY@0600 PO 02/17/24 06:00 02/19/24 06:07 40 MG Clonidine HCl 0.1 mg DAILY PO 02/17/24 10:00 02/18/24 11:54 0.1 MG Furosemide 40 mg DAILY IV 02/17/24 10:00 02/17/24 09:04 40 MG Amlodipine Besylate 5 mg DAILY PO 02/17/24 10:00 02/18/24 11:53 5 MG objective Awake but disoriented HEENT: Normocephalic Lungs: Bilateral good air entry CVS: S1, S2 regular rate rhythm Abdomen: Soft, bowel sounds present 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 laboratory and microbiology Laboratory Tests 02/17/24 05:39 Test 02/17/24 05:39 Range/Units Serum Glucose 120 H 74-106 mg/dL Problem List End-stage kidney disease on hemodialysis Rule out CVA Type 2 diabetes Hypertension Hyperlipidemia History of CARROT BUNCHER shunt Right ICA stenosis Assessment/Plan We will continue dialysis on Wednesday schedule. We will need revascularization of the carotid. Probable transfer to [place]. Plan discussed with: DANIEL Mei MD Feb 19, 2024 08:08
--- NOTE | 2024-02-19 09:11 | DVHPN2 ---
Reviewed: Care Plan, H&P, Labs, Medications, Previous Orders, Radiology Changes from previous H/P or p: No Changes Objective Vitals Vital Signs Date Time Temp Pulse Resp B/P (MAP) Pulse Ox O2 Delivery O2 Flow Rate FiO2 02/19/24 09:04 144/49 02/19/24 05:00 97.6 58 16 94 97.6 02/18/24 20:00 Room Air* 0 21 Intake/Output Intake and Output 02/19/24 06:59 Intake Total 1300 ml Output Total 0 ml Balance 1300 ml Intake Oral 1300 ml Output Urine Total 0 ml Stool Total 0 ml # Voids 4 Medications Current Medications Medications Dose Ordered Sig/Wayne Route Start Time Stop Time Status Last Admin Dose Admin Sodium Chloride 10 ml Q8HR IV 02/16/24 22:00 02/19/24 06:07 10 ML Acetaminophen 650 mg Q6HP PRN PO 02/16/24 21:15 Morphine Sulfate 2 mg Q4HPRN PRN IV 02/16/24 21:15 Nitroglycerin 0.4 mg Q5MINP PRN SL 02/16/24 21:15 Morphine Sulfate 2 mg Q30M PRN IV 02/16/24 21:15 Clopidogrel Bisulfate 75 mg DAILY PO 02/17/24 10:00 02/19/24 09:03 75 MG Aspirin 81 mg DAILY PO 02/17/24 10:00 02/19/24 09:04 81 MG Atorvastatin Calcium 40 mg HS PO 02/16/24 22:00 02/18/24 21:06 40 MG Hydralazine HCl 10 mg Q6HP PRN IV 02/16/24 21:15 02/17/24 01:32 10 MG Diagnostic Test (Pha) 1 strip ACHS 02/16/24 22:00 02/19/24 06:08 1 STRIP Insulin Human Regular ACHS SC 02/16/24 22:00 02/18/24 12:05 2 UNITS Dextrose 50 ml UD PRN IV 02/16/24 21:15 Enoxaparin Sodium 30 mg DAILY SC 02/17/24 10:00 02/19/24 09:03 30 MG Pantoprazole Sodium 40 mg DAILY@0600 PO 02/17/24 06:00 02/19/24 06:07 40 MG Clonidine HCl 0.1 mg DAILY PO 02/17/24 10:00 02/19/24 09:03 0.1 MG Furosemide 40 mg DAILY IV 02/17/24 10:00 02/19/24 09:02 40 MG Amlodipine Besylate 5 mg DAILY PO 02/17/24 10:00 02/19/24 09:04 5 MG Laboratory Results Laboratory Tests 02/17/24 05:39 Labs and/or images reviewed: Labs reviewed by me, Image(s) reviewed by me Assessment/Plan Assessment/Plan Acute right-sided weakness ruled out TIA echocardiogram 60% ejection Neurology consult for Dr. Raphael CT head negative Right internal carotid artery stenosis 90%, cardiology Dr. 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 Possible congestive heart failure Diabetes mellitus: Insulin sliding scale Hypertension ESRD on hemodialysis, Nephrology consult appreciated Hypercholesterolemia: Lipitor Hypothyroidism History of stroke Anemia of chronic disease History of Ventricular shunt unknown reason Elevated D-dimer 1.33 PE ruled out Time spent 65 minutes Condition guarded Patient is full code Plan discussed with: Patient My Orders Orders - DEMARCO VILLA MD Procedure Category Date Status Time * Cardiology Consult CONS 02/18/24 Transmitted 09:06 Date of Service: Feb 19, 2024 Billing Provider: DEMARCO VILLA MD Common Visit Codes: [id number] INP/OBS CARE(HIGH) DEMARCO VILLA MD Feb 19, 2024 09:11
--- NOTE | 2024-02-19 09:13 | DVHDS2 ---
Discharge Summary Date of Admission Feb 16, 2024 at 21:06 Date of Discharge: Feb 19, 2024 Labs/Diagnostic Data: Laboratory Results Test 02/19/24 06:13 02/18/24 06:21 02/17/24 05:39 02/17/24 02:17 POC Glucose 81 mg/dl (70-106) Triglycerides Level 33 mg/dL (< 150) Cholesterol Level 179 mg/dL (< 200) LDL Cholesterol 95 mg/dL (< 100) HDL Cholesterol 61 mg/dL (40-59) White Blood Count 5.7 10^3/uL (4.4-10.8) Red Blood Count 3.00 10^6/uL (4.0-5.20) Hemoglobin 9.4 g/dL (12.2-16.2) Hematocrit 27.3 % (36.0-46.0) Mean Corpuscular Volume 91.1 fL (80.0-100.0) Mean Corpuscular Hemoglobin 31.4 pg (28.0-32.0) Mean Corpuscular Hemoglobin Concent 34.5 g/dL (32.0-36.0) Red Cell Distribution Width 15.5 % (11.8-14.3) Platelet Count 175 10^3/uL (140-450) Mean Platelet Volume 8.3 fL (6.9-10.8) Neutrophils (%) (Auto) 53.7 % (37.0-80.0) Lymphocytes (%) (Auto) 30.8 % (10.0-50.0) Monocytes (%) (Auto) 12.6 % (0.0-12.0) Eosinophils (%) (Auto) 2.1 % (0.0-7.0) Basophils (%) (Auto) 0.8 % (0.0-2.0) Neutrophils # (Auto) 3.1 10 ^3/uL (1.6-8.6) Lymphocytes # (Auto) 1.8 10 ^3/uL (0.4-5.4) Monocytes # (Auto) 0.7 10 ^3/uL (0-1.3) Eosinophils # (Auto) 0.1 10 ^3/uL (0-0.8) Basophils # (Auto) 0 10 ^3/uL (0-0.2) Nucleated Red Blood Cells 0.1 % Sodium Level 129 mmol/L (136-145) Potassium Level 4.3 mmol/L (3.5-5.1) Chloride Level 91 mmol/L (98-107) Carbon Dioxide Level 27 mmol/L (20-31) Anion Gap 11 (5-15) Blood Urea Nitrogen 49 mg/dL (9-23) Creatinine 3.70 mg/dL (0.550-1.02) Glomerular Filtration Rate Calc 13 mL/min (>90) BUN/Creatinine Ratio 13.2 (10.0-20.0) Serum Glucose 120 mg/dL (74-106) Calcium Level 10.6 mg/dL (8.7-10.4) Magnesium Level 2.3 mg/dL (1.6-2.6) Total Bilirubin 0.3 mg/dL (0.2-1.0) Aspartate Amino Transferase (AST) 18 U/L (13-40) Alanine Aminotransferase (ALT) 19 U/L (7-40) Alkaline Phosphatase 107 U/L (46-116) Total Protein 6.9 g/dL (5.7-8.2) Albumin 4.0 g/dL (3.2-4.8) D-Dimer, Quantitative 1.33 mg/L FEU (0.0-0.49) Test 02/16/24 18:46 Hemoglobin A1c 4.9 % A1C (<5.7) Serum Osmolality 281 mOsm/kg (278-298) Iron Level 40 ug/dL (50-170) Total Iron Binding Capacity 214 ug/dL (250-425) Percent Iron Saturation 18.7 % (15-50) Ferritin 494.0 ng/mL (10-291) Troponin I High Sensitivity 7 ng/L (</=34) B-Type Natriuretic Peptide 444.36 pg/mL (0-100) Vitamin B12 Level 785 pg/mL (211-911) Folic Acid 11.73 ng/mL (>5.38) Thyroid Stimulating Hormone (TSH) 6.67 uIU/mL (0.55-4.78) Free Thyroxine (T4) Calculated 1.25 ng/dL (0.89-1.76) Free Triiodothyronine (T3) pg/mL 2.89 pg/mL (2.3-4.2) Other Laboratory Tests 02/17/24 05:39 Condition at Discharge: Fair Final Diagnosis/Problems List Acute right-sided weakness ruled out TIA echocardiogram 60% ejection Neurology consult for Dr. Raphael CT head negative Right internal carotid artery stenosis 90%, cardiology Dr. Brown advised transferred to [place] for carotid revascularization in view of the history of MASS SPEC shunt Possible congestive heart failure Diabetes mellitus: Insulin sliding scale Hypertension ESRD on hemodialysis, Nephrology consult appreciated Hypercholesterolemia: Lipitor Hypothyroidism History of stroke Anemia of chronic disease History of Ventricular shunt unknown reason Elevated D-dimer 1.33 PE ruled out Discharge Disposition: Acute Care Facility Discharge Instruct/Medications Diet: Renal Activity: Light activity Follow Up/Referral: Per [place] 35 (Time taken for discharge summary 35 minutes) Discharge Statement: "Patient was advised to return to the ER or call 911 if any headaches, dizziness, shortness of breath, chest pain, abdominal pain, bleeding, fevers, or worsening of medical condition. Patient was counseled about treatment plan, medications, possible side effects, patientverbalized understanding. All questions were answered to the best of my ability. This discharge took greater then 30 minutes in planning, reviewing documentation, counseling the patient, and discussing with other team members." ASSESSMENT ASSESSMENT Assessment Acute right-sided weakness ruled out TIA echocardiogram 60% ejection Neurology consult for Dr. Raphael CT head negative Right internal carotid artery stenosis 90%, cardiology Dr. Brown advised transferred to [place] for carotid revascularization in view of the history of MASS SPEC shunt Possible congestive heart failure Diabetes mellitus: Insulin sliding scale Hypertension ESRD on hemodialysis, Nephrology consult appreciated Hypercholesterolemia: Lipitor Hypothyroidism History of stroke Anemia of chronic disease History of Ventricular shunt unknown reason Elevated D-dimer 1.33 PE ruled out DEMARCO VILLA MD Feb 19, 2024 09:13
--- NOTE | 2024-02-19 09:18 | DVHDS2 ---
Discharge Summary Date of Admission Feb 16, 2024 at 21:06 Date of Discharge: Feb 19, 2024 Admitting Diagnosis Right-sided weakness Wounds: None Labs/Diagnostic Data: Laboratory Results Test 02/19/24 06:13 02/18/24 06:21 02/17/24 05:39 02/17/24 02:17 POC Glucose 81 mg/dl (70-106) Triglycerides Level 33 mg/dL (< 150) Cholesterol Level 179 mg/dL (< 200) LDL Cholesterol 95 mg/dL (< 100) HDL Cholesterol 61 mg/dL (40-59) White Blood Count 5.7 10^3/uL (4.4-10.8) Red Blood Count 3.00 10^6/uL (4.0-5.20) Hemoglobin 9.4 g/dL (12.2-16.2) Hematocrit 27.3 % (36.0-46.0) Mean Corpuscular Volume 91.1 fL (80.0-100.0) Mean Corpuscular Hemoglobin 31.4 pg (28.0-32.0) Mean Corpuscular Hemoglobin Concent 34.5 g/dL (32.0-36.0) Red Cell Distribution Width 15.5 % (11.8-14.3) Platelet Count 175 10^3/uL (140-450) Mean Platelet Volume 8.3 fL (6.9-10.8) Neutrophils (%) (Auto) 53.7 % (37.0-80.0) Lymphocytes (%) (Auto) 30.8 % (10.0-50.0) Monocytes (%) (Auto) 12.6 % (0.0-12.0) Eosinophils (%) (Auto) 2.1 % (0.0-7.0) Basophils (%) (Auto) 0.8 % (0.0-2.0) Neutrophils # (Auto) 3.1 10 ^3/uL (1.6-8.6) Lymphocytes # (Auto) 1.8 10 ^3/uL (0.4-5.4) Monocytes # (Auto) 0.7 10 ^3/uL (0-1.3) Eosinophils # (Auto) 0.1 10 ^3/uL (0-0.8) Basophils # (Auto) 0 10 ^3/uL (0-0.2) Nucleated Red Blood Cells 0.1 % Sodium Level 129 mmol/L (136-145) Potassium Level 4.3 mmol/L (3.5-5.1) Chloride Level 91 mmol/L (98-107) Carbon Dioxide Level 27 mmol/L (20-31) Anion Gap 11 (5-15) Blood Urea Nitrogen 49 mg/dL (9-23) Creatinine 3.70 mg/dL (0.550-1.02) Glomerular Filtration Rate Calc 13 mL/min (>90) BUN/Creatinine Ratio 13.2 (10.0-20.0) Serum Glucose 120 mg/dL (74-106) Calcium Level 10.6 mg/dL (8.7-10.4) Magnesium Level 2.3 mg/dL (1.6-2.6) Total Bilirubin 0.3 mg/dL (0.2-1.0) Aspartate Amino Transferase (AST) 18 U/L (13-40) Alanine Aminotransferase (ALT) 19 U/L (7-40) Alkaline Phosphatase 107 U/L (46-116) Total Protein 6.9 g/dL (5.7-8.2) Albumin 4.0 g/dL (3.2-4.8) D-Dimer, Quantitative 1.33 mg/L FEU (0.0-0.49) Test 02/16/24 18:46 Hemoglobin A1c 4.9 % A1C (<5.7) Serum Osmolality 281 mOsm/kg (278-298) Iron Level 40 ug/dL (50-170) Total Iron Binding Capacity 214 ug/dL (250-425) Percent Iron Saturation 18.7 % (15-50) Ferritin 494.0 ng/mL (10-291) Troponin I High Sensitivity 7 ng/L (</=34) B-Type Natriuretic Peptide 444.36 pg/mL (0-100) Vitamin B12 Level 785 pg/mL (211-911) Folic Acid 11.73 ng/mL (>5.38) Thyroid Stimulating Hormone (TSH) 6.67 uIU/mL (0.55-4.78) Free Thyroxine (T4) Calculated 1.25 ng/dL (0.89-1.76) Free Triiodothyronine (T3) pg/mL 2.89 pg/mL (2.3-4.2) Other Laboratory Tests 02/17/24 05:39 Brief Hx & Hospital Course: Old female with multiple medical problems including hypertension diabetes ESRD on hemodialysis hypercholesterolemia hypothyroidism 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 Echocardiogram [address] head was negative seen by Neurology Dr. Raphael. Carotid ultrasound showed 90 percent stenosis right internal carotid artery cardiology Dr. Brown suggested patient to be transferred to [place] for revascularization of the right internal carotid artery in view of the previous METAL BUILDING ASSEMBLER shunt. Comorbid conditions appropriately treated and patient is being transferred to [place] for further care patient received hemodialysis while in the hospital Dr. Wendy lugo. D-dimer was elevated PE ruled out. Consults/Reason for consult Nephrology Dr. Gordillo Neurology Dr. Raphael Cardiology Dr. Brown Operations or Procedures CT head Carotid ultrasound Echocardiogram Dialysis Condition at Discharge: Fair Final Diagnosis/Problems List Acute right-sided weakness ruled out TIA echocardiogram 60% ejection Neurology consult for Dr. Raphael CT head negative Right internal carotid artery stenosis 90%, cardiology Dr. 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 Possible congestive heart failure Diabetes mellitus: Insulin sliding scale Hypertension ESRD on hemodialysis, Nephrology consult appreciated Hypercholesterolemia: Lipitor Hypothyroidism History of stroke Anemia of chronic disease History of Ventricular shunt unknown reason Elevated D-dimer 1.33 PE ruled out Discharge Disposition: Acute Care Facility Discharge Instruct/Medications Diet: Renal Activity: Light activity Follow Up/Referral: Per [place] 39 (Time taken for discharge summary 39 minutes) Discharge Statement: "Patient was advised to return to the ER or call 911 if any headaches, dizziness, shortness of breath, chest pain, abdominal pain, bleeding, fevers, or worsening of medical condition. Patient was counseled about treatment plan, medications, possible side effects, patientverbalized understanding. All questions were answered to the best of my ability. This discharge took greater then 30 minutes in planning, reviewing documentation, counseling the patient, and discussing with other team members." ASSESSMENT ASSESSMENT Hospital Course Stable Assessment Acute right-sided weakness ruled out TIA echocardiogram 60% ejection Neurology consult for Dr. Raphael CT head negative Right internal carotid artery stenosis 90%, cardiology Dr. 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
[2024-02-19 11:28] LABS: COVID19 ANTIGEN SOFIA FIA NEGATIVE (NEGATIVE)
--- NOTE | 2024-02-19 12:48 | DVHPN2 ---
Progress Note Date Seen: Feb 19, 2024 Medical Necessity Reason Pt with a Central, PICC or Fol: No Subjective Patient reports: Feels better Objective vital signs Vital Sign Date Time Temp Pulse Resp B/P (MAP) Pulse Ox O2 Delivery O2 Flow Rate FiO2 02/19/24 09:04 144/49 02/19/24 09:00 98.4 59 16 97 98.4 02/19/24 08:00 Room Air* 0 21 Total Intake and Output 02/18/24 02/18/24 02/19/24 15:00 23:00 07:00 Intake Total 900 ml 400 ml Output Total 0 ml Balance 900 ml 400 ml medications Current Medications Medications Dose Ordered Sig/Wayne Route Start Time Stop Time Status Last Admin Dose Admin Sodium Chloride 10 ml Q8HR IV 02/16/24 22:00 02/19/24 06:07 10 ML Acetaminophen 650 mg Q6HP PRN PO 02/16/24 21:15 Morphine Sulfate 2 mg Q4HPRN PRN IV 02/16/24 21:15 Nitroglycerin 0.4 mg Q5MINP PRN SL 02/16/24 21:15 Morphine Sulfate 2 mg Q30M PRN IV 02/16/24 21:15 Clopidogrel Bisulfate 75 mg DAILY PO 02/17/24 10:00 02/19/24 09:03 75 MG Aspirin 81 mg DAILY PO 02/17/24 10:00 02/19/24 09:04 81 MG Atorvastatin Calcium 40 mg HS PO 02/16/24 22:00 02/18/24 21:06 40 MG Hydralazine HCl 10 mg Q6HP PRN IV 02/16/24 21:15 02/17/24 01:32 10 MG Diagnostic Test (Pha) 1 strip ACHS 02/16/24 22:00 02/19/24 06:08 1 STRIP Insulin Human Regular ACHS SC 02/16/24 22:00 02/18/24 12:05 2 UNITS Dextrose 50 ml UD PRN IV 02/16/24 21:15 Enoxaparin Sodium 30 mg DAILY SC 02/17/24 10:00 02/19/24 09:03 30 MG Pantoprazole Sodium 40 mg DAILY@0600 PO 02/17/24 06:00 02/19/24 06:07 40 MG Clonidine HCl 0.1 mg DAILY PO 02/17/24 10:00 02/19/24 09:03 0.1 MG Furosemide 40 mg DAILY IV 02/17/24 10:00 02/19/24 09:02 40 MG Amlodipine Besylate 5 mg DAILY PO 02/17/24 10:00 02/19/24 09:04 5 MG Examination: GENERAL:Abnormal, HEENT:Abnormal, LUNGS:Abnormal, CVS:Normal, ABDOMEN:Normal laboratory and microbiology Laboratory Tests 02/17/24 05:39 Test 02/17/24 05:39 Range/Units Serum Glucose 120 H 74-106 mg/dL Problem List/Assessment/Plan Problem List/Assessment/Plan esrd on hd carotid stenosis 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
[2024-02-20 01:00] VITALS: BP 132/58; PULSE 68; RESP 18; TEMP 98.2; O2SAT 97
[2024-02-20 05:00] VITALS: BP 148/46; PULSE 59; RESP 18; TEMP 97.4; O2SAT 98
--- NOTE | 2024-02-20 07:55 | DVHPN2 ---
Reviewed: Care Plan, H&P, Labs, Medications, Previous Orders, Radiology Changes from previous H/P or p: No Changes Objective Vitals Vital Signs Date Time Temp Pulse Resp B/P (MAP) Pulse Ox O2 Delivery O2 Flow Rate FiO2 02/20/24 05:00 97.4 59 18 148/46 (80) 98 97.4 02/19/24 20:00 Room Air* 0 21 Intake/Output Intake and Output 02/20/24 07:00 Intake Total 1580 ml Output Total 400 ml Balance 1180 ml Intake Oral 1580 ml Output Urine Total 400 ml # Voids 2 Medications Current Medications Medications Dose Ordered Sig/Wayne Route Start Time Stop Time Status Last Admin Dose Admin Sodium Chloride 10 ml Q8HR IV 02/16/24 22:00 02/20/24 05:54 10 ML Acetaminophen 650 mg Q6HP PRN PO 02/16/24 21:15 Morphine Sulfate 2 mg Q4HPRN PRN IV 02/16/24 21:15 Nitroglycerin 0.4 mg Q5MINP PRN SL 02/16/24 21:15 Morphine Sulfate 2 mg Q30M PRN IV 02/16/24 21:15 Clopidogrel Bisulfate 75 mg DAILY PO 02/17/24 10:00 02/19/24 09:03 75 MG Aspirin 81 mg DAILY PO 02/17/24 10:00 02/19/24 09:04 81 MG Atorvastatin Calcium 40 mg HS PO 02/16/24 22:00 02/19/24 21:59 40 MG Hydralazine HCl 10 mg Q6HP PRN IV 02/16/24 21:15 02/17/24 01:32 10 MG Diagnostic Test (Pha) 1 strip ACHS 02/16/24 22:00 02/20/24 06:19 1 STRIP Insulin Human Regular ACHS SC 02/16/24 22:00 02/19/24 22:00 4 UNITS Dextrose 50 ml UD PRN IV 02/16/24 21:15 Enoxaparin Sodium 30 mg DAILY SC 02/17/24 10:00 02/19/24 09:03 30 MG Pantoprazole Sodium 40 mg DAILY@0600 PO 02/17/24 06:00 02/20/24 05:54 40 MG Clonidine HCl 0.1 mg DAILY PO 02/17/24 10:00 02/19/24 09:03 0.1 MG Furosemide 40 mg DAILY IV 02/17/24 10:00 02/19/24 09:02 40 MG Amlodipine Besylate 5 mg DAILY PO 02/17/24 10:00 02/19/24 09:04 5 MG Laboratory Results Laboratory Tests 02/17/24 05:39 Labs and/or images reviewed: Labs reviewed by me, Image(s) reviewed by me Assessment/Plan Assessment/Plan Acute right-sided weakness ruled out TIA echocardiogram 60% ejection Neurology consult for Dr. Raphael CT head negative Right internal carotid artery stenosis 90%, cardiology Dr. 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 Possible congestive heart failure Diabetes mellitus: Insulin sliding scale Hypertension ESRD on hemodialysis, Nephrology consult appreciated Hypercholesterolemia: Lipitor Hypothyroidism History of stroke Anemia of chronic disease History of Ventricular shunt unknown reason Elevated D-dimer 1.33 PE ruled out Patient was put up for transfer to [place] on 02/19/2024 [place] Requesting neurologist to see the patient Neurologist has already seen twice 02-17-24, 02-18-24 Requested creative services producer to fax his notes and transfer the patient Plan discussed with: Patient My Orders Orders - DEMARCO VILLA MD Procedure Category Date Status Time Discharge DISCHARGE 02/19/24 Transmitted 09:11 * Pocket Setter CONS 02/19/24 Transmitted Consult Communication Order ORDERS 02/19/24 Transmitted 09:18 Imaging Transfer ORDERS 02/19/24 Transmitted Request 12:25 Date of Service: Feb 20, 2024 Billing Provider: DEMARCO VILLA MD Common Visit Codes: [id number] INP/OBS CARE(HIGH) DEMARCO VILLA MD Feb 20, 2024 07:55
[2024-02-20 08:00] VITALS: PULSE 60
--- NOTE | 2024-02-20 10:31 | DVHPN2 ---
Progress Note - Dictate Date Seen: Feb 20, 2024 Medical Necessity Reason Pt with a Central, PICC or Fol: No Subjective Ms. 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 Normal left ventricular systolic function estimated ejection fraction of 60%. There is a grade 1 diastolic dysfunction. Normal right ventricular size and dimension. Normal right ventricular systolic function. Normal biatrial size and dimension. There is mild aortic valve sclerosis. Normal mitral valve structure and function. Normal tricuspid valve structure and function. The pulmonary valve is grossly normal. No pericardial effusion. Carotid Doppler, 02/16/24: 1. Greater than 70% stenosis of the right internal carotid. 2. No hemodynamically significant stenosis noted in the left carotid system CT head, 02/16/2024: 1. No acute intracranial hemorrhage 2. Ventriculoperitoneal shunt tube in place exiting the right posterior parietal skull vital signs Vital Sign Date Time Temp Pulse Resp B/P (MAP) Pulse Ox O2 Delivery O2 Flow Rate FiO2 02/20/24 05:00 97.4 59 18 148/46 (80) 98 97.4 02/19/24 20:00 Room Air* 0 21 Total Intake and Output 02/19/24 02/19/24 02/20/24 15:00 23:00 07:00 Intake Total 240 ml 600 ml 740 ml Output Total 400 ml Balance 240 ml 200 ml 740 ml medications Current Medications Medications Dose Ordered Sig/Wayne Route Start Time Stop Time Status Last Admin Dose Admin Sodium Chloride 10 ml Q8HR IV 02/16/24 22:00 02/20/24 05:54 10 ML Acetaminophen 650 mg Q6HP PRN PO 02/16/24 21:15 Morphine Sulfate 2 mg Q4HPRN PRN IV 02/16/24 21:15 Nitroglycerin 0.4 mg Q5MINP PRN SL 02/16/24 21:15 Morphine Sulfate 2 mg Q30M PRN IV 02/16/24 21:15 Clopidogrel Bisulfate 75 mg DAILY PO 02/17/24 10:00 02/19/24 09:03 75 MG Aspirin 81 mg DAILY PO 02/17/24 10:00 02/19/24 09:04 81 MG Atorvastatin Calcium 40 mg HS PO 02/16/24 22:00 02/19/24 21:59 40 MG Hydralazine HCl 10 mg Q6HP PRN IV 02/16/24 21:15 02/17/24 01:32 10 MG Diagnostic Test (Pha) 1 strip ACHS 02/16/24 22:00 02/20/24 06:19 1 STRIP Insulin Human Regular ACHS SC 02/16/24 22:00 02/19/24 22:00 4 UNITS Dextrose 50 ml UD PRN IV 02/16/24 21:15 Enoxaparin Sodium 30 mg DAILY SC 02/17/24 10:00 02/19/24 09:03 30 MG Pantoprazole Sodium 40 mg DAILY@0600 PO 02/17/24 06:00 02/20/24 05:54 40 MG Clonidine HCl 0.1 mg DAILY PO 02/17/24 10:00 02/19/24 09:03 0.1 MG Furosemide 40 mg DAILY IV 02/17/24 10:00 02/19/24 09:02 40 MG Amlodipine Besylate 5 mg DAILY PO 02/17/24 10:00 02/19/24 09:04 5 MG objective General: the patient is well developed and nourished. No acute distress. MENTAL STATUS: Awake and alert. Oriented to person, place SPEECH, LANGUAGE, HIGHER CORTICAL FUNCTION: no aphasia or dysathria. CRANIAL NERVES: Pupils are equal, round and reactive. EOMs full and conjugate. Facial sensation intact in all three divisions bilaterally. Mandibular strength intact. Facial muscles symmetrical and strength intact. SENSATION: Sensation to touch and pinprick is normal. MOTOR: Normal tone in the upper and lower extremity. Normal muscle bulk. No fasciculations. No abnormal movements or posturing. Muscle strength of the major groups in the extremities is 4-5/5 with no drift. REFLEXES: Deep tendon reflexes are symmetrical. No pathological reflexes. CEREBELLAR/COORDINATION: Finger to nose is normal bilaterally. GAIT/STATION: deferred laboratory and microbiology Laboratory Tests 02/17/24 05:39 Test 02/17/24 05:39 Range/Units Serum Glucose 120 H 74-106 mg/dL Problem List Reports right-sided weakness rule out stroke Headache Status post DESIGN ENGINEER shunt Cognitive dysfunction Right internal Carotid stenosis Assessment/Plan Monitoring Supportive treatment Telemetry Aspirin 81 mg daily Lipitor 40 mg daily GI prophylaxis DVT prophylaxis Further address the carotid stenosis with [facility] More recommendation per clinical course Okay to discharge from neurologic point of view This medical document was created using an electronic medical record system with Xen[employer] dictation system. Although this document has been carefully reviewed, there may still be some phonetic and typographical errors. These areas are purely typographical due to imperfections of the software programs, and do not reflect any compromise in the patient's medical care. Prognosis poor Plan discussed with: Other MANI BURT MD Feb 20, 2024 10:31
[2024-02-20 13:00] VITALS: BP 153/53; PULSE 60; RESP 12; TEMP 98.5; O2SAT 99
--- NOTE | 2024-02-20 13:23 | DVHPN2 ---
Progress Note - Dictate Date Seen: Feb 20, 2024 Medical Necessity Reason Pt with a Central, PICC or Fol: No Subjective No acute issues overnight Awaiting transfer to [place] vital signs Vital Sign Date Time Temp Pulse Resp B/P (MAP) Pulse Ox O2 Delivery O2 Flow Rate FiO2 02/20/24 11:02 177/71 02/20/24 05:00 97.4 59 18 98 97.4 02/19/24 20:00 Room Air* 0 21 Total Intake and Output 02/19/24 02/19/24 02/20/24 15:00 23:00 07:00 Intake Total 240 ml 600 ml 740 ml Output Total 400 ml Balance 240 ml 200 ml 740 ml medications Current Medications Medications Dose Ordered Sig/Wayne Route Start Time Stop Time Status Last Admin Dose Admin Sodium Chloride 10 ml Q8HR IV 02/16/24 22:00 02/20/24 05:54 10 ML Acetaminophen 650 mg Q6HP PRN PO 02/16/24 21:15 Morphine Sulfate 2 mg Q4HPRN PRN IV 02/16/24 21:15 Nitroglycerin 0.4 mg Q5MINP PRN SL 02/16/24 21:15 Morphine Sulfate 2 mg Q30M PRN IV 02/16/24 21:15 Clopidogrel Bisulfate 75 mg DAILY PO 02/17/24 10:00 02/20/24 11:00 75 MG Aspirin 81 mg DAILY PO 02/17/24 10:00 02/20/24 11:01 81 MG Atorvastatin Calcium 40 mg HS PO 02/16/24 22:00 02/19/24 21:59 40 MG Hydralazine HCl 10 mg Q6HP PRN IV 02/16/24 21:15 02/17/24 01:32 10 MG Diagnostic Test (Pha) 1 strip ACHS 02/16/24 22:00 02/20/24 11:53 1 STRIP Insulin Human Regular ACHS SC 02/16/24 22:00 02/20/24 12:34 4 UNITS Dextrose 50 ml UD PRN IV 02/16/24 21:15 Enoxaparin Sodium 30 mg DAILY SC 02/17/24 10:00 02/19/24 09:03 30 MG Pantoprazole Sodium 40 mg DAILY@0600 PO 02/17/24 06:00 02/20/24 05:54 40 MG Clonidine HCl 0.1 mg DAILY PO 02/17/24 10:00 02/20/24 11:02 0.1 MG Furosemide 40 mg DAILY IV 02/17/24 10:00 02/20/24 11:01 40 MG Amlodipine Besylate 5 mg DAILY PO 02/17/24 10:00 02/20/24 11:02 5 MG objective Arousable HEENT: Normocephalic Lungs: Bilateral good air entry CVS: S1, S2 regular rate rhythm Abdomen: Soft, bowel sounds present LOCK TENDER: No focal deficits Extremities: No edema. 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 We will need revascularization of the carotid. Awaiting transfer to [place]. Plan discussed with: Other DANIEL WAKEFIELD MD Feb 20, 2024 13:23
[2024-02-20 14:07] LABS: Basophils # (auto) 0 10 ^3/uL (0-0.2); Basophils % (auto) 0.7 % (0.0-2.0); Eosinophils # (auto) 0.2 10 ^3/uL (0-0.8); Eosinophils % (auto) 3.3 % (0.0-7.0); Hematocrit 27.1 % (36.0-46.0); Hemoglobin 9.1 g/dL (12.2-16.2); Lymphocytes # (auto) 1.6 10 ^3/uL (0.4-5.4); Lymphocytes % (auto) 24.7 % (10.0-50.0); Mean Corpuscular Hemoglobin 31.3 pg (28.0-32.0); Mean Corpuscular Hgb Conc. 33.7 g/dL (32.0-36.0); Mean Corpuscular Volume 93.1 fL (80.0-100.0); Monocytes # (auto) 0.7 10 ^3/uL (0-1.3); Monocytes % (auto) 10.9 % (0.0-12.0); Neutrophils % (auto) 60.4 % (37.0-80.0); Nucleated Red Blood Cells % 0.1 %; Platelet Count (auto) 144 10^3/uL (140-450); Red Blood Cells 2.92 10^6/uL (4.0-5.20); Red Cell Distribution Width 14.8 % (11.8-14.3); White Blood Cell 6.6 10^3/uL (4.4-10.8)
[2024-02-20 14:24] LABS: Alanine Aminotransferase 20 U/L (7-40); Albumin 3.3 g/dL (3.2-4.8); Alkaline Phosphatase 83 U/L (46-116); Anion Gap 10 (5-15); Aspartate Aminotransferase 31 U/L (13-40); BUN/Creatinine Ratio 15.1 (10.0-20.0); Calcium 9.1 mg/dL (8.7-10.4); Carbon Dioxide 23 mmol/L (20-31); Chloride 99 mmol/L (98-107); Magnesium 2.1 mg/dL (1.6-2.6); Potassium 4.8 mmol/L (3.5-5.1)
[2024-02-20 14:25] LABS: Phosphorus 3.1 mg/dL (2.4-5.1); Total Protein 5.9 g/dL (5.7-8.2)
[2024-02-20 14:32] LABS: Glucose 202 mg/dL (74-106); Sodium 132 mmol/L (136-145)
[2024-02-20 14:36] LABS: Bilirubin, Total < 0.2 mg/dL (0.2-1.0); Blood Urea Nitrogen 83 mg/dL (9-23)
[2024-02-20] MEDS: ACETAMINOPHEN 325 MG TAB PO PRN (16:26)
[2024-02-20 17:00] VITALS: BP 156/57; PULSE 87; RESP 16; TEMP 98.1; O2SAT 98
[2024-02-21] MEDS ORDERED: SODIUM CHL 0.9% 1000 ML BAG XX ONE (07:00)
[2024-02-21] MEDS ORDERED: amLODIPine BESYLATE 5 MG TAB PO SCH (10:00)
[2024-02-21] MEDS ORDERED: EPOETIN ALFA-EPBX 4,000 UNIT/ML VIAL SC ONE (21:00)
== END 2024-02-20 17:37 | disposition left against medical advice (07) | DRG 199 ==
LOC: ER 17:36 → TELE 21:06 → TELE-E-ADS 23:45
PROVIDERS: ADMIT Internal Medicine; ATTEND Family Medicine
DX: I16.0 Hypertensive urgency (principal); I50.31 Acute diastolic (congestive) heart failure; N18.6 End stage renal disease; E11.22 Type 2 diabetes mellitus with diabetic chronic kidney disease; D63.1 Anemia in chronic kidney disease; E87.1 Hypo-osmolality and hyponatremia; I13.2 Hypertensive heart and chronic kidney disease with heart failure and with stage 5 chronic kidney disease, or end stage renal disease; Z20.822 Contact with and (suspected) exposure to COVID-19; I65.21 Occlusion and stenosis of right carotid artery; E03.9 Hypothyroidism, unspecified; Z99.2 Dependence on renal dialysis; E78.00 Pure hypercholesterolemia, unspecified; I35.8 Other nonrheumatic aortic valve disorders; Z79.82 Long term (current) use of aspirin; Z98.2 Presence of cerebrospinal fluid drainage device; Z86.73 Personal history of transient ischemic attack (TIA), and cerebral infarction without residual deficits; Z82.3 Family history of stroke; Z79.899 Other long term (current) drug therapy; Z83.3 Family history of diabetes mellitus; Z88.0 Allergy status to penicillin; E16.2 Hypoglycemia, unspecified
CPT/HCPCS: 36415; 70450; 78582; 80053; 80061; 82607; 82728; 82746; 82962; 83036; 83540; 83550; 83735; 83880; 83930; 84100; 84439; 84443; 84481; 84484; 85025; 85379; 87340; 87426; 90935; 93306; 93886; G0378; J1815

== ENCOUNTER 2024-04-08 15:29 | Inpatient (IN) | payer MEDICAID ==
[~2024-04-08] VITALS: Ht 152.4 cm; Wt 44.0 kg
[~2024-04-08 15:29] MED LIST: CALC667C PO
--- NOTE | 2024-04-08 15:59 | ECG ---
[facility] Test Date: 2024-04-08 Test Time: 15:44:18 Pat Name: KANDIS CASTELLON Department: ER Room: Gender: F Last Turner: LUCIANO : 1960 Requested By: DANETTE SCOTT Order Number: [id number] Reading MD: Measurements Intervals [place] Rate: 58 P: 55 CA: 175 QRS: 8 QRSD: 89 T: 38 QT: 489 QTc: 481 Interpretive Statements Sinus rhythm Minimal ST elevation, inferior leads Baseline wander in lead(s) V5 Please click the below link to view image of tracing.
--- NOTE | 2024-04-08 16:08 | ED.PDOC ---
Altered Mental Status HPI Comments 63 y.o female with PMHx of ESRD, on dialysis, HTN, and hyperlipidemia, presents to the ED via EMS for an evaluation of hypotension. EMS reports patient was at dialysis today, dislodged the dialysis needle tip from her fistula located on her left upper arm and it began to bleed. Staff reported patient also had a syn copal episode shortly after and laid her flat. EMS on scene reported blood pressure at 83 systolic, began bolus bag with pressure increasing to 91 systolic. Patient at this time is able to sit up straight and denies any lightheadedness. No active bleeding from fistula upon ED arrival Chief Complaint: Low Blood Pressure Time Seen by MD: 15:37 Reviewed Notes: Nurses Notes, Route Aide Notes, Medications, Allergies Allergies: Uncoded Allergies: PENICILLIN (Allergy, Unknown, 05/05/23) Home Meds Reported Medications Calcium Acetate (Phosphate Bin (Calcium Acetate) 667 Mg Cap, 667 MG PO TIDWM, MG 02/18/24 Information Source: Patient, Emergency Med Personnel Mode of Arrival: EMS Severity: Moderate Timing: Hours Duration: Since onset Quality: Decreased Alertness, Change in Behavior Recent: None Associated Signs and Symptoms: None Past Medical History PAST MEDICAL HISTORY: DM, ESRD, High Lipids, HTN Surgical History (Other): left arm fistula [employer] D[employer] ATTENDANT History: Denies all [employer] D[employer] ATTENDANT Hx Family History Family History: Reviewed,noncontributory to illness Social History Smoker: Non-Smoker Alcohol: Denies ETOH Use Drugs: Denies Drug Use Lives In: Home Constitutional: denies: chills, diaphoresis, fatigue, fever, malaise, sweats, weakness, others EENTM: denies: blurred vision, double vision, ear bleeding, ear discharge, ear drainage, ear pain, ear ringing, eye pain, eye redness, hearing loss, mouth pain, mouth swelling, nasal discharge, nose bleeding, nose congestion, nose pain, photophobia, tearing, throat pain, throat swelling, voice changes, others Respiratory: denies: cough, hemoptysis, orthopnea, SOB at rest, shortness of breath, SOB with excertion, stridor, wheezing, others Cardiovascular: reports: syncope; denies: chest pain, dizzy spells, diaphoresis, Dyspnea on exertion, edema, irregular heart beat, left arm pain, lightheadedness, palpitations, PND, others Gastrointestinal: denies: abdomen distended, abdominal pain, blood streaked bowels, constipated, diarrhea, dysphagia, difficulty swallowing, hematemesis, melena, nausea, poor appetite, poor fluid intake, rectal bleeding, rectal pain, vomiting, others Genitourinary: denies: abnormal vagina bleeding, burning, dyspareunia, dysuria, flank pain, frequency, hematuria, incontinence, pain, , vagina discharge, urgency, others Neurological: denies: dizziness, fainting, headache, left sided numbness, left sided weakness, numbness, paresthesia, pre-existing deficit, right sided numbness, right sided weakness, seizure, speech problems, tingling, tremors, weakness, others Musculoskeletal: denies: back pain, gout, joint pain, joint swelling, muscle pain, muscle stiffness, neck pain, others Integumetry: denies: bruises, change in color, change in hair/nails, dryness, laceration, lesions, lumps, rash, wounds, others Allergic/Immunocompromised: denies: Difficulty Healing, Frequent Infections, Hives, Itching, others Hematologic/Lymphatic: denies: anemia, blood clots, easy bleeding, easy bruising, swollen glands, others Endocrine: denies: excessive hunger, excessive sweating, excessive thirst, excessive urination, flushing, intolerance to cold, intolerance to heat, unexplained weight gain, unexplained weight loss, others Psychiatric: denies: anxiety, bipolar disorder, depression, hopeless, panic disorder, schizophrenia, sleepless, suicidal, others All Other Systems: Reviewed and Negative Physical Exam General Appearance: No Apparent Distress, Normal HEENT: Normal ENT Inspection, Pharynx Normal, TMs Normal Neck: Full Range of Motion, Non-Tender, Normal, Normal Inspection Respiratory: Chest Non-Tender, Lungs Clear, No Accessory Muscle Use, No Respiratory Distress, Normal Breath Sounds Cardiovascular: No Edema, No JVD, No Murmur, No Gallop, Normal Peripheral Pulses, Regular Rate/Rhythm Breast Exam: Deferred Gastrointestinal: No Organomegaly, Non Tender, No Pulsatile Mass, Normal Bowel Sounds, Soft Genitalia: Deferred Pelvic: Deferred Rectal: Deferred Extremities: No calf tenderness, Normal capillary refill, Normal inspection, Normal range of motion, Non-tender, No pedal edema Musculoskeletal : Apperance: Normal Neurologic: Alert, social services II-XII nml as Tested, No Motor Deficits, Normal Affect, Normal Mood, No Sensory Deficits Cerebellar Function: Normal Reflexes: Normal Skin: Other (left upper fistual clean dressing applied by EMS no active bleeding) Lymphatic: No Adenopathy Was a procedure done? Was a procedure done?: No Differential Diagnosis (ALOC) Differential Diagnosis: Dehydration, Hypoxemia, Closed Head Injury, Renal Failure X-Ray, Labs, Meds, VS Vital Signs Date Time Temp Pulse Resp B/P (MAP) Pulse Ox O2 Delivery O2 Flow Rate FiO2 04/08/24 17:30 60 12 100 Room Air* 0 21 04/08/24 17:20 98.1 60 12 94/40 (58) 100 98.1 04/08/24 15:46 99.1 60 12 91/47 (62) 94 04/08/24 15:44 58 Lab Test 04/08/24 16:47 Range/Units White Blood Count 5.8 4.4-10.8 10^3/uL Red Blood Count 2.15 L 4.0-5.20 10^6/uL Hemoglobin 6.8 *L 12.2-16.2 g/dL Hematocrit 19.0 L 36.0-46.0 % Mean Corpuscular Volume 88.7 80.0-100.0 fL Mean Corpuscular Hemoglobin 31.9 28.0-32.0 pg Mean Corpuscular Hemoglobin Concent 35.9 32.0-36.0 g/dL Red Cell Distribution Width 14.5 H 11.8-14.3 % Platelet Count 166 140-450 10^3/uL Mean Platelet Volume 8.0 6.9-10.8 fL Neutrophils (%) (Auto) 66.8 37.0-80.0 % Lymphocytes (%) (Auto) 19.6 10.0-50.0 % Monocytes (%) (Auto) 10.3 0.0-12.0 % Eosinophils (%) (Auto) 2.6 0.0-7.0 % Basophils (%) (Auto) 0.7 0.0-2.0 % Neutrophils # (Auto) 3.8 1.6-8.6 10 ^3/uL Lymphocytes # (Auto) 1.1 0.4-5.4 10 ^3/uL Monocytes # (Auto) 0.6 0-1.3 10 ^3/uL Eosinophils # (Auto) 0.1 0-0.8 10 ^3/uL Basophils # (Auto) 0 0-0.2 10 ^3/uL Nucleated Red Blood Cells 0.1 % Sodium Level 131 L 136-145 mmol/L Potassium Level 3.1 L 3.5-5.1 mmol/L Chloride Level 92 L 98-107 mmol/L Carbon Dioxide Level 30 20-31 mmol/L Anion Gap 9 5-15 Blood Urea Nitrogen 21 9-23 mg/dL Creatinine 2.35 H 0.550-1.02 mg/dL Glomerular Filtration Rate Calc 23 >90 mL/min BUN/Creatinine Ratio 8.9 L 10.0-20.0 Serum Glucose 208 H 74-106 mg/dL Calcium Level 9.1 8.7-10.4 mg/dL Time of 1ST Reevaluation: 16:05 Reevaluation 1ST: Unchanged Time of 2ND Reevaluation: 18:50 Reevaluation 2ND: Unchanged Patient Education/Counseling: Diagnosis, Treatment Family Education/Counseling: No Family Present Additional Information I reviewed the following notes from patient's past medical encounters: 02/16/24 Upper and lower extremity numbness The following tests were ordered, and results were reviewed by me: CBC and EKG x1 Additional Information was gathered from interviewing the following independent historians: Paramedics I reviewed and agreed with the following test results read by other providers: None I discussed treatment and results with medical personnel, also Dr Hilario, [facility], who authorized to admit pt here #[id number] per Dr Hilario, pt's baseline hg is 9-10. her baseline SBP is over 150, so it does appear that pt had significant blood loss when she pulled out her access needles and her syncope was due to hypotension, rather than vasovagal reaction. pt will need to be transfused, but needs close monitoring due to renal failure, while she gets transfusion Departure 1 Departure Time of Disposition: 18:53 Impression: Primary Impression: Acute blood loss anemia Additional Impressions: CKD (chronic kidney disease) Qualified Codes: N18.6 - End stage renal disease; Z99.2 - Dependence on renal dialysis Hypotension Qualified Codes: E86.1 - Hypovolemia Hypokalemia Disposition: 09 ADMITTED INPATIENT Admit to: Tele Condition: Serious Critical Care Note Critical Care Time?: Yes (55 min-critical care time only) Critical care comment: due to concerns for deterioration of patient's condition, the care required my highest level of attention and readiness. i assessed the patient's condition, revieweed relavent documents, communicated with medical personnel, ordered the proper tests and treatments, reassed fro results and response to treatments, spoke to family and consultants and formulated a plan of care Stability Stability form required: No I personally scribed for DANETTE SCOTT MD ([facility]) on 04/08/24 at 16:08. Electronically submitted by Carline Pickett ([facility]). DANETTE SCOTT MD Apr 08, 2024 16:08
[2024-04-08 17:07] LABS: Lymphocytes # (auto) 1.1 10 ^3/uL (0.4-5.4); Monocytes # (auto) 0.6 10 ^3/uL (0-1.3); White Blood Cell 5.8 10^3/uL (4.4-10.8)
[2024-04-08 17:09] LABS: Basophils # (auto) 0 10 ^3/uL (0-0.2); Basophils % (auto) 0.7 % (0.0-2.0); Eosinophils # (auto) 0.1 10 ^3/uL (0-0.8); Eosinophils % (auto) 2.6 % (0.0-7.0); Lymphocytes % (auto) 19.6 % (10.0-50.0); Mean Corpuscular Hemoglobin 31.9 pg (28.0-32.0); Mean Corpuscular Hgb Conc. 35.9 g/dL (32.0-36.0); Mean Corpuscular Volume 88.7 fL (80.0-100.0); Monocytes % (auto) 10.3 % (0.0-12.0); Neutrophils # (auto) 3.8 10 ^3/uL (1.6-8.6); Neutrophils % (auto) 66.8 % (37.0-80.0); Nucleated Red Blood Cells % 0.1 %; Platelet Count (auto) 166 10^3/uL (140-450); Red Blood Cells 2.15 10^6/uL (4.0-5.20); Red Cell Distribution Width 14.5 % (11.8-14.3)
[2024-04-08 17:13] LABS: Hemoglobin 6.8 g/dL (12.2-16.2)
[2024-04-08 17:30] VITALS: PULSE 60; RESP 12; O2SAT 100
[2024-04-08 18:18] LABS: Anion Gap 9 (5-15); Carbon Dioxide 30 mmol/L (20-31)
[2024-04-08 18:19] LABS: Calcium 9.1 mg/dL (8.7-10.4)
[2024-04-08 18:24] LABS: BUN/Creatinine Ratio 8.9 (10.0-20.0); Blood Urea Nitrogen 21 mg/dL (9-23)
[2024-04-08 18:39] LABS: Chloride 92 mmol/L (98-107); Glucose 208 mg/dL (74-106); Potassium 3.1 mmol/L (3.5-5.1); Sodium 131 mmol/L (136-145)
[2024-04-08] MEDS ORDERED: HYDROcodone-ACET 5/325MG TAB PO PRN (19:00)
[2024-04-08] MEDS ORDERED: ACETAMINOPHEN 325 MG TAB PO PRN (19:00)
[2024-04-08] MEDS ORDERED: DOCUSATE SOD 100 MG CAP PO PRN (19:00)
[2024-04-08] MEDS ORDERED: ONDANSETRON HCL 4 MG/2 ML VIAL IV PRN (19:00)
[2024-04-08] MEDS ORDERED: DEXTROSE (50%) 50ML SYRG IV PRN (19:00)
[2024-04-08 20:00] VITALS: PULSE 61; RESP 11; O2SAT 98
[2024-04-08] MEDS ORDERED: NITROGLYCERIN 0.4 MG SL TAB SL PRN (20:00)
[2024-04-08] MEDS ORDERED: MORPHINE SULFATE INJ 2 MG/ml SYRG IV PRN (20:00)
[2024-04-08] MEDS: InsuLIN REG 1unit/0.01ml Soln (100units/ml) SC SCH (20:00)
--- NOTE | 2024-04-08 20:01 | DVHHP2 ---
History of Present Illness Reason for Visit: Severe anemia History of Present Illness The patient is a 63-year-old female with past medical history of DM, ESRD on dialysis, hyperlipidemia, and hypertension who presented to [facility] ED for evaluation of hypotension. As reported by family member, patient was at dialysis today, the dialysis needle tip dislodged from her fistula located on her left upper arm and it began to bleed. Staff reported patient had a syncopal episode shortly after and laid her flat. Patient was seen and evaluated in the ED, laboratory data shows WBC 5.8, hemoglobin 6.8, hematocrit 19.0, platelets 166, sodium 131, potassium 3.1, BUN 21, creatinine 2.35, GFR 23, glucose 208, blood pressure 94/40, heart rate 60, temperature 98.1 F, O2 saturation 99% on room air. Patient was given 1 units of PRBC, please see medication orders section in the computer. On my assessment, family member at bedside, patient denied chest pain, no headache, no dizziness, no diaphoresis, no nausea, no vomiting, no fever, no chills. Patient was admitted for further evaluation and medical management. Past Medical History DM, ESRD on dialysis, High Lipids, HTN Past Surgical History Left arm fistula Family History Reviewed, noncontributory to the management of this case. Past Social History The patient lives at home, denies smoking, alcohol or illicit drugs abuse. Review of Systems Constitutional: Yes: Weakness; No: Fever, Chills, Sweats, Malaise, Other Eyes: No: Pain, Vision change, Conjunctivae inflammation, Eyelid inflammation, Other, Redness ENT: No: Ear pain, Ear discharge, Nose pain, Nose discharge, Nose congestion, Mouth pain, Mouth swelling, Throat pain, Throat swelling, Other Respiratory: No: Cough, Dry, Shortness of breath, SOB with excertion, Wheezing, Hemoptysis, Pleuritic Pain, Sputum, Wheezing, Other Cardiovascular: Other (Syncope); No: Chest Pain, Palpitations, Orthopnea, Paroxysmal Noc. Dyspnea, Edema, Lt Headedness Gastrointestinal: No: Nausea, Vomiting, Abdominal Pain, Diarrhea, Constipation, Melena, Hematochezia, Other Genitourinary: No Dysuria, No Frequency, No Incontinence, No Hematuria, No Retention, No Other Musculoskeletal: No: other, neck pain, shoulder pain, arm pain, back pain, hand pain, leg pain, foot pain Skin: No: Rash, Lesions, Jaundice, Bruising, Other Neurological: No: Weakness, Numbness, Incoordination, Change in speech, Confusion, Seizures, Other Allergies: Uncoded Allergies: PENICILLIN (Allergy, Unknown, 05/05/23) Medications Current Medications Medications Dose Ordered Sig/[place] Route Start Time Stop Time Status Last Admin Dose Admin Sevelamer HCl 800 mg TIDWM PO 04/09/24 08:00 Multivit/Ca Carb/ B Cmplx/FA/Prenat 1 tab DAILY PO 04/09/24 10:00 Famotidine 20 mg DAILY IV 04/09/24 10:00 Diagnostic Test (Pha) 1 strip IQ4HR 04/08/24 20:00 Insulin Human Regular IQ4HR SC 04/08/24 20:00 Dextrose 50 ml UD PRN IV 04/08/24 19:00 Sodium Chloride 10 ml Q8HR IV 04/08/24 22:00 Acetaminophen/ Hydrocodone Bitart 1 tab Q4HP PRN PO 04/08/24 19:00 Ondansetron HCl 4 mg Q4HP PRN IV 04/08/24 19:00 Docusate Sodium 100 mg BIDPRN PRN PO 04/08/24 19:00 Acetaminophen 650 mg Q6HP PRN PO 04/08/24 19:00 Exam Vital Signs Vital Signs Date Time Temp Pulse Resp B/P (MAP) Pulse Ox O2 Delivery O2 Flow Rate FiO2 04/08/24 19:00 64 12 116/43 (67) 100 04/08/24 17:30 Room Air* 0 21 04/08/24 17:20 98.1 98.1 General Appearance: Alert, Oriented X3, Cooperative, No acute distress HEENT: Atraumatic, PERRLA, EOMI, Mucous membr. moist/pink Respiratory: Clear to auscultation, Normal air movement Cardiovascular: Regular rate, Normal S1, Normal S2, No murmurs Abdominal: Normal bowel sounds, Soft, No tenderness, No hepatospenomegaly, No masses Extremities: No clubbing, No cyanosis, No edema, Normal pulses, No t enderness/swelling Skin: No rashes, No breakdown, No significant lesion Neuro: Normal speech, Normal tone, Sensation intact, Cranial nerves 3-12 NL, Reflexes 2+, Other (Generalized weakness) Psych/Mental Status: Mental status NL, Mood NL Labs/Xrays Labs Test 04/08/24 16:47 Range/Units White Blood Count 5.8 4.4-10.8 10^3/uL Red Blood Count 2.15 L 4.0-5.20 10^6/uL Hemoglobin 6.8 *L 12.2-16.2 g/dL Hematocrit 19.0 L 36.0-46.0 % Mean Corpuscular Volume 88.7 80.0-100.0 fL Mean Corpuscular Hemoglobin 31.9 28.0-32.0 pg Mean Corpuscular Hemoglobin Concent 35.9 32.0-36.0 g/dL Red Cell Distribution Width 14.5 H 11.8-14.3 % Platelet Count 166 140-450 10^3/uL Mean Platelet Volume 8.0 6.9-10.8 fL Neutrophils (%) (Auto) 66.8 37.0-80.0 % Lymphocytes (%) (Auto) 19.6 10.0-50.0 % Monocytes (%) (Auto) 10.3 0.0-12.0 % Eosinophils (%) (Auto) 2.6 0.0-7.0 % Basophils (%) (Auto) 0.7 0.0-2.0 % Neutrophils # (Auto) 3.8 1.6-8.6 10 ^3/uL Lymphocytes # (Auto) 1.1 0.4-5.4 10 ^3/uL Monocytes # (Auto) 0.6 0-1.3 10 ^3/uL Eosinophils # (Auto) 0.1 0-0.8 10 ^3/uL Basophils # (Auto) 0 0-0.2 10 ^3/uL Nucleated Red Blood Cells 0.1 % Sodium Level 131 L 136-145 mmol/L Potassium Level 3.1 L 3.5-5.1 mmol/L Chloride Level 92 L 98-107 mmol/L Carbon Dioxide Level 30 20-31 mmol/L Anion Gap 9 5-15 Blood Urea Nitrogen 21 9-23 mg/dL Creatinine 2.35 H 0.550-1.02 mg/dL Glomerular Filtration Rate Calc 23 >90 mL/min BUN/Creatinine Ratio 8.9 L 10.0-20.0 Serum Glucose 208 H 74-106 mg/dL Calcium Level 9.1 8.7-10.4 mg/dL Assessment/Plan Assessment/Plan Acute blood loss anemia CKD (chronic kidney disease) Dependence on renal dialysis Hypotension, unspecified Electrolyte imbalance Generalized weakness End stage renal disease on hemodialysis Plan 1. Admit to telemetry unit 2. Breathing treatment 3. Pain control management 4. Management of fluids and electrolytes 5. Consultation for Nephrology 6. Diagnostic tests chest x-ray 7. DVT prophylaxis on SCDs 8. Repeat labs CBC, CMP in a.m. 9. Continue with current medical management 10. Treatment plan discussed with patient and RN. Patient verbalized understanding. Plan discussed with: Patient, Other (RN) My Orders Orders - SUKH HDEZ DNP Procedure Category Date Status Time Sevelamer (Renagel) PHA 04/09/24 In Process 08:00 B-Complex W/ C & PHA 04/09/24 In Process Folic Tablet 10:00 *Dr. [facility] CONS 04/08/24 Transmitted -[place] 18:57 Famotidine Injection PHA 04/09/24 In Process (Pepcid Injection) 10:00 Consistent DIET 04/09/24 Transmitted Carb(Ccho)Diabetes Breakfast Glucose Blood PHA 04/08/24 In Process (Accu-Chek Comfort 20:00 Insulin R (Human) PHA 04/08/24 In Process (Insulin R) 20:00 Dextrose 50% Syringe PHA 04/08/24 In Process 19:00 Allergies GARRY 04/08/24 In Process 18:57 Code Status CODE 04/08/24 Transmitted 18:57 Renal DIET 04/09/24 Transmitted Standard(2gna,3gk,Lopho) Breakfast Sodium Chloride Lock PHA 04/08/24 In Process (Saline Lock Ns) 22:00 Oxygen Per Hour RT 04/08/24 Transmitted 18:57 Hydrocodone-Acet PHA 04/08/24 In Process 5/325mg Tab ([place] 19:00 Ondansetron Hcl PHA 04/08/24 In Process (Zofran) 19:00 Docusate Sodium PHA 04/08/24 In Process Capsule (Colace 19:00 Fall Risk Precautions GARRY 04/08/[address] 18:57 Complete Blood Count LAB 04/09/24 Verified 04:00 Comprehensive LAB 04/09/24 Verified Metabolic Panel 04:00 Condition: Serious GARRY 04/08/24 In Process 18:57 Acetaminophen Tablet PHA 04/08/24 In Process (Tylenol Tablet) 19:00 Sequential GARRY 04/08/24 In Process Compression Device Problem List: (1) Acute blood loss anemia (2) Electrolyte imbalance (3) Hypotension, unspecified (4) CKD (chronic kidney disease) (5) Generalized weakness (6) End-stage renal disease on hemodialysis (7) Dependence on renal dialysis Date of Service: Apr 08, 2024 Billing Provider: SUKH HDEZ DNP Common Visit Codes: 52215-AUIMXVH INP/OBS CARE (HIGH) SUKH HDEZ DNP Apr 08, 2024 20:01
[2024-04-08] MEDS: POTASSIUM CHL 20 Meq TABLET PO ONE (21:02)
[2024-04-08] MEDS: ACCU-CHEK COMFORT CURVE STRIP VI SCH (21:58)
[2024-04-08] MEDS: SODIUM CHLOR 0.9% PF (SALINE LOCK) 10ML VIAL/SYR IV SCH (22:24)
[2024-04-09] VITALS (9 sets, daily range): BP systolic 126–165; BP diastolic 30–77; PULSE 62–67; RESP 12–17; TEMP 97.4–98; O2SAT 95–99
[2024-04-09] MEDS: SEVELAMER 800 MG TAB PO SCH (10:03)
[2024-04-09] MEDS: B-COMPLEX W/ C & FOLIC ACID(NEPHROVITE TAB) PO SCH (10:03)
[2024-04-09] MEDS: FAMOTIDINE (10MG/ML) 2ML VL IV SCH (10:03)
[2024-04-09 10:31] LABS: Basophils # (auto) 0 10 ^3/uL (0-0.2); Basophils % (auto) 0.6 % (0.0-2.0); Eosinophils # (auto) 0.1 10 ^3/uL (0-0.8); Eosinophils % (auto) 2.4 % (0.0-7.0); Hematocrit 25.7 % (36.0-46.0); Hemoglobin 8.9 g/dL (12.2-16.2); Lymphocytes # (auto) 1.4 10 ^3/uL (0.4-5.4); Lymphocytes % (auto) 24.8 % (10.0-50.0); Mean Corpuscular Hemoglobin 31.7 pg (28.0-32.0); Mean Corpuscular Hgb Conc. 34.6 g/dL (32.0-36.0); Mean Corpuscular Volume 91.8 fL (80.0-100.0); Monocytes # (auto) 0.7 10 ^3/uL (0-1.3); Monocytes % (auto) 12.1 % (0.0-12.0); Neutrophils # (auto) 3.4 10 ^3/uL (1.6-8.6); Neutrophils % (auto) 60.1 % (37.0-80.0); Nucleated Red Blood Cells % 0.1 %; Platelet Count (auto) 132 10^3/uL (140-450); Red Blood Cells 2.79 10^6/uL (4.0-5.20); Red Cell Distribution Width 14.3 % (11.8-14.3); White Blood Cell 5.7 10^3/uL (4.4-10.8)
[2024-04-09 10:47] LABS: Alanine Aminotransferase 15 U/L (7-40); Albumin 3.7 g/dL (3.2-4.8); Alkaline Phosphatase 91 U/L (46-116); Anion Gap 8 (5-15); Aspartate Aminotransferase 15 U/L (13-40); BUN/Creatinine Ratio 8.9 (10.0-20.0); Bilirubin, Total 0.5 mg/dL (0.2-1.0); Calcium 9.4 mg/dL (8.7-10.4); Carbon Dioxide 28 mmol/L (20-31); Potassium 4.2 mmol/L (3.5-5.1); Total Protein 6.2 g/dL (5.7-8.2)
[2024-04-09 10:49] LABS: Blood Urea Nitrogen 30 mg/dL (9-23); Chloride 94 mmol/L (98-107); Glucose 256 mg/dL (74-106); Sodium 130 mmol/L (136-145)
[2024-04-09] MEDS ORDERED: CLON0.1T PO (13:20)
[2024-04-09] MEDS ORDERED: ATOR40TA52 PO (13:20)
[2024-04-09] MEDS ORDERED: HYDR50TA47 PO (13:20)
[2024-04-09] MEDS ORDERED: SEVE800T8 PO (13:20)
[2024-04-09] MEDS ORDERED: ASPI-543 PO (13:20)
[2024-04-09] MEDS ORDERED: CALC667C PO (13:21)
[2024-04-09 15:03] LABS: Basophils # (auto) 0 10 ^3/uL (0-0.2); Basophils % (auto) 0.7 % (0.0-2.0); Eosinophils # (auto) 0.1 10 ^3/uL (0-0.8); Eosinophils % (auto) 2.8 % (0.0-7.0); Hematocrit 23.9 % (36.0-46.0); Hemoglobin 8.3 g/dL (12.2-16.2); Lymphocytes # (auto) 1.6 10 ^3/uL (0.4-5.4); Lymphocytes % (auto) 29.5 % (10.0-50.0); Mean Corpuscular Hemoglobin 31.7 pg (28.0-32.0); Mean Corpuscular Hgb Conc. 34.8 g/dL (32.0-36.0); Mean Corpuscular Volume 91.1 fL (80.0-100.0); Monocytes # (auto) 0.8 10 ^3/uL (0-1.3); Monocytes % (auto) 14.3 % (0.0-12.0); Neutrophils # (auto) 2.8 10 ^3/uL (1.6-8.6); Neutrophils % (auto) 52.7 % (37.0-80.0); Platelet Count (auto) 130 10^3/uL (140-450); Red Blood Cells 2.62 10^6/uL (4.0-5.20); Red Cell Distribution Width 14.4 % (11.8-14.3); White Blood Cell 5.3 10^3/uL (4.4-10.8)
--- NOTE | 2024-04-09 16:18 | DVH ---
CHEST RADIOGRAPH Indication: sob Technique: Single frontal view of the chest was obtained COMPARISON: None FINDINGS: Lines and Tubes: 2 right central venous catheters appear grossly in satisfactory position. Lungs: Mild congestion Pleura: No effusion. No pneumothorax. Cardiomediastinal contours: Unremarkable Bones: Unremarkable IMPRESSION: Mild congestion
--- NOTE | 2024-04-09 18:13 | DVHDS2 ---
Discharge Summary Date of Admission Apr 08, 2024 at 20:00 Date of Discharge: Apr 09, 2024 Admitting Diagnosis Severe anemia Labs/Diagnostic Data: Laboratory Results Test 04/09/24 16:58 04/09/24 14:34 04/09/24 10:10 POC Glucose 72 mg/dl (70-106) White Blood Count 5.3 10^3/uL (4.4-10.8) Red Blood Count 2.62 10^6/uL (4.0-5.20) Hemoglobin 8.3 g/dL (12.2-16.2) Hematocrit 23.9 % (36.0-46.0) Mean Corpuscular Volume 91.1 fL (80.0-100.0) Mean Corpuscular Hemoglobin 31.7 pg (28.0-32.0) Mean Corpuscular Hemoglobin Concent 34.8 g/dL (32.0-36.0) Red Cell Distribution Width 14.4 % (11.8-14.3) Platelet Count 130 10^3/uL (140-450) Mean Platelet Volume 8.6 fL (6.9-10.8) Neutrophils (%) (Auto) 52.7 % (37.0-80.0) Lymphocytes (%) (Auto) 29.5 % (10.0-50.0) Monocytes (%) (Auto) 14.3 % (0.0-12.0) Eosinophils (%) (Auto) 2.8 % (0.0-7.0) Basophils (%) (Auto) 0.7 % (0.0-2.0) Neutrophils # (Auto) 2.8 10 ^3/uL (1.6-8.6) Lymphocytes # (Auto) 1.6 10 ^3/uL (0.4-5.4) Monocytes # (Auto) 0.8 10 ^3/uL (0-1.3) Eosinophils # (Auto) 0.1 10 ^3/uL (0-0.8) Basophils # (Auto) 0 10 ^3/uL (0-0.2) Nucleated Red Blood Cells 0.0 % Sodium Level 130 mmol/L (136-145) Potassium Level 4.2 mmol/L (3.5-5.1) Chloride Level 94 mmol/L (98-107) Carbon Dioxide Level 28 mmol/L (20-31) Anion Gap 8 (5-15) Blood Urea Nitrogen 30 mg/dL (9-23) Creatinine 3.38 mg/dL (0.550-1.02) Glomerular Filtration Rate Calc 15 mL/min (>90) BUN/Creatinine Ratio 8.9 (10.0-20.0) Serum Glucose 256 mg/dL (74-106) Calcium Level 9.4 mg/dL (8.7-10.4) Total Bilirubin 0.5 mg/dL (0.2-1.0) Aspartate Amino Transferase (AST) 15 U/L (13-40) Alanine Aminotransferase (ALT) 15 U/L (7-40) Alkaline Phosphatase 91 U/L (46-116) Total Protein 6.2 g/dL (5.7-8.2) Albumin 3.7 g/dL (3.2-4.8) Other Laboratory Tests 04/09/24 14:34 04/09/24 10:10 Brief Hx & Hospital Course: HPI: 63 y.o female with PMHx of ESRD, on dialysis, HTN, and hyperlipidemia, presents to the ED via EMS for an evaluation of hypotension. EMS reports patient was at dialysis today, dislodged the dialysis needle tip from her fistula located on her left upper arm and it began to bleed. Staff reported patient also had a syncopal episode shortly after and laid her flat. EMS on scene reported blood pressure at 83 systolic, began bolus bag with pressure increasing to 91 systolic Hospital course: On admit patient has hemoglobin 6.8 Normocytic. Creatinine is elevated per ESRD, hyperglycemia 208. Hypokalemia 3.1, hyponatremia 131. CXR shows mild congestion. Patient is given 1 unit PRBC. Follow up hemoglobin is 8.9 and 8.3 thereafter. Patient vital signs are stable. No further bleeding from AV fistula. Patient asymptomatic and back to her baseline. Safe for discharge with plan below. Discharge diagnosis: Acute blood loss anemia; ESRD on HD; left arm fistula for HD; diabetes; hyperlipidemia; hypertension Discharge plan: -continue routine HD at dialysis clinic - No changes in home medications -monitor for presyncopal symptoms (fainting, dizziness, passing out), return to ED if the symptoms recur and are persist. Return to ED if bleeding from fistula returns. Condition at Discharge: Fair Final Diagnosis/Problems List Acute blood loss anemia; ESRD on HD; left arm fistula for HD; diabetes; hyperlipidemia; hypertension Discharge Disposition: Home Discharge Instruct/Medications Diet: Renal Activity: No Restrictions, As Tolerated Follow Up/Referral: PCP, Nephrology Medications: As below Discharge Statement: "Patient was advised to return to the ER or call 911 if any headaches, dizziness, shortness of breath, chest pain, abdominal pain, bleeding, fevers, or worsening of medical condition. Patient was counseled about treatment plan, medications, possible side effects, patientverbalized understanding. All questions were answered to the best of my ability. This discharge took greater then 30 minutes in planning, reviewing documentation, counseling the patient, and discussing with other team members." ASSESSMENT ASSESSMENT Assessment Acute blood loss anemia; ESRD on HD; left arm fistula for HD; diabetes; hyperlipidemia; hypertension Date of Service: Apr 09, 2024 Billing Provider: BALDOMERO SHELDON MD Common Visit Codes: 77029-DLA/OBS DISCH DAY >30min BALDOMERO SHELDON MD Apr 09, 2024 18:13
== END 2024-04-09 19:30 | disposition home or self-care (01) | DRG 663 ==
LOC: ER 15:29 → EDBD 15:29 → TELE 20:00 → TELE-WESTW 04-09 05:14
PROVIDERS: ADMIT Nurse Practitioner Family; ATTEND Nurse Practitioner Family
PROC: 30233N1 Transfusion of Nonautologous Red Blood Cells into Peripheral Vein, Percutaneous Approach (ICD-10-PCS; principal; 2024-04-09)
DX: D62 Acute posthemorrhagic anemia (principal); I12.0 Hypertensive chronic kidney disease with stage 5 chronic kidney disease or end stage renal disease; E11.22 Type 2 diabetes mellitus with diabetic chronic kidney disease; E87.1 Hypo-osmolality and hyponatremia; N18.6 End stage renal disease; E78.5 Hyperlipidemia, unspecified; E87.6 Hypokalemia; E11.65 Type 2 diabetes mellitus with hyperglycemia; Z99.2 Dependence on renal dialysis; Z88.0 Allergy status to penicillin; Z79.899 Other long term (current) drug therapy
CPT/HCPCS: 36415; 71045; 80048; 80053; 82962; 85025; 86850; 86900; 86901; 86920; 87081; 93005; 99291; G0378; J1815; J3490

== ENCOUNTER 2024-10-21 22:29 | Emergency (ER) | payer MEDICAID ==
[~2024-10-21] VITALS: Ht 134.6 cm; Wt 42.7 kg
[~2024-10-21 22:29] MED LIST changes: +ASPI-543 PO; +ATOR40TA52 PO; +CLON0.1T PO; +HYDR50TA47 PO; +SEVE800T8 PO
[2024-10-21 23:13] LABS: Hematocrit 39.6 % (36.0-46.0); Hemoglobin 13.6 g/dL (12.2-16.2); Mean Corpuscular Hemoglobin 30.2 pg (28.0-32.0); Mean Corpuscular Volume 87.8 fL (80.0-100.0); Nucleated Red Blood Cells % 0.0 %
[2024-10-21 23:21] LABS: Potassium 3.8 mmol/L (3.5-5.1)
[2024-10-21 23:22] LABS: Anion Gap 11 (5-15); Calcium 8.9 mg/dL (8.7-10.4); Carbon Dioxide 29 mmol/L (20-31)
[2024-10-21 23:27] LABS: BUN/Creatinine Ratio 10.5 (10.0-20.0)
[2024-10-21 23:29] LABS: Blood Urea Nitrogen 45 mg/dL (9-23); Chloride 93 mmol/L (98-107); Glucose 152 mg/dL (74-106); Sodium 133 mmol/L (136-145)
[2024-10-22 01:09] VITALS: TEMP 97.6
[2024-10-22] MEDS ORDERED: CLON0.2T PO (01:31)
--- NOTE | 2024-10-22 01:31 | ED.PDOC ---
HPI Comments This patient is a 63-year-old female who suffers from dementia and end-stage renal disease on dialysis who was brought in by family members today for headache concerns due to elevated blood pressure issues. Patient has a history of hypertension as well and family states it is usually well controlled. Patient received a dialysis today and subsequent to her treatment, family states her blood pressure was over 200. At time of arrival, patient's BP was 199/59. They gave her her regular blood pressure medication wishes unknown approximately 2 hours prior to arrival. Patient's baseline is altered due to progressive dementia. Family denies any fever nausea or vomiting. Chief Complaint: High Blood Pressure Time Seen by MD: 22:36 Reviewed Notes: Nurses Notes Allergies: Uncoded Allergies: PENICILLIN (Allergy, Unknown, 05/05/23) Home Meds Reported Medications Calcium Acetate (Phosphate Bin (Calcium Acetate) 667 Mg Cap, 667 MG PO TIDWM for 30 Days, MG 04/09/24 Atorvastatin Calcium (ATORVASTATIN CALCIUM) 40 Mg Tab, 1 TAB PO DAILY, #30 TAB 5 Refills 04/09/24 Sevelamer Carbonate (Renvela) 800 Mg Tab, 800 MG PO TIDWM, TAB /05/02 Aspirin (Aspir-Low) 81 Mg Tab, 81 MG PO DAILY for 30 Days, MG /25 Clonidine Hydrochloride (Clonidine Hcl) 0.1 Mg Tab, 0.1 MG PO BID for 30 Days, MG /25 Hydralazine Hcl (Hydralazine Hcl) 50 Mg Tab, 50 MG PO TID for 30 Days, MG 25 Information Source: Patient, Relative (Child) Mode of Arrival: Wheelchair Severity: Moderate Timing: Hours Duration: Since onset Prehospital treatment: Other (Patient received her dialysis treatment.) Quality: Sharp Onset: At Rest Cardiac Risk Factors: Other (End-stage renal disease on dialysis) History of: None Past Medical History PAST MEDICAL HISTORY: DM, ESRD, High Lipids, HTN Surgical History: Denies all surgeries 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 Family History Family History: Reviewed,noncontributory to illness Social History Smoker: Non-Smoker Alcohol: Denies ETOH Use Drugs: Denies Drug Use Lives In: Home Constitutional: denies: chills, diaphoresis, fatigue, fever, malaise, sweats, weakness, others EENTM: denies: blurred vision, double vision, ear bleeding, ear discharge, ear drainage, ear pain, ear ringing, eye pain, eye redness, hearing loss, mouth pain, mouth swelling, nasal discharge, nose bleeding, nose congestion, nose pain, photophobia, tearing, throat pain, throat swelling, voice changes, others Respiratory: denies: cough, hemoptysis, orthopnea, SOB at rest, shortness of breath, SOB with excertion, stridor, wheezing, others Cardiovascular: denies: chest pain, dizzy spells, diaphoresis, Dyspnea on exertion, edema, irregular heart beat, left arm pain, lightheadedness, pa lpitations, PND, syncope, others Gastrointestinal: denies: abdomen distended, abdominal pain, blood streaked bowels, constipated, diarrhea, dysphagia, difficulty swallowing, hematemesis, melena, nausea, poor appetite, poor fluid intake, rectal bleeding, rectal pain, vomiting, others Genitourinary: denies: abnormal vagina bleeding, burning, dyspareunia, dysuria, flank pain, frequency, hematuria, incontinence, pain, , vagina discharge, urgency, others Neurological: reports: headache; denies: dizziness, fainting, left sided numbness, left sided weakness, numbness, paresthesia, pre-existing deficit, right sided numbness, right sided weakness, seizure, speech problems, tingling, tremors, weakness, others Musculoskeletal: denies: back pain, gout, joint pain, joint swelling, muscle pain, muscle stiffness, neck pain, others Integumetry: denies: bruises, change in color, change in hair/nails, dryness, laceration, lesions, lumps, rash, wounds, others Allergic/Immunocompromised: denies: Difficulty Healing, Frequent Infections, Hives, Itching, others Hematologic/Lymphatic: denies: anemia, blood clots, easy bleeding, easy bruising, swollen glands, others Endocrine: denies: excessive hunger, excessive sweating, excessive thirst, excessive urination, flushing, intolerance to cold, intolerance to heat, unexplained weight gain, unexplained weight loss, others Psychiatric: denies: anxiety, bipolar disorder, depression, hopeless, panic disorder, schizophrenia, sleepless, suicidal, others Physical Exam General Appearance: Mild Distress (Moderate distress due to headache concerns. Patient has a relatively flat affect due to the dementia.), Normal HEENT: Normal ENT Inspection, Pharynx Normal, TMs Normal Neck: Full Range of Motion, Non-Tender, Normal, Normal Inspection Respiratory: Chest Non-Tender, Lungs Clear, No Accessory Muscle Use, No Respiratory Distress, Normal Breath Sounds Cardiovascular: No Edema, No JVD, No Murmur, No Gallop, Normal Peripheral Pulses, Regular Rate/Rhythm Breast Exam: Deferred Gastrointestinal: No Organomegaly, Non Tender, No Pulsatile Mass, Normal Bowel Sounds, Soft Genitalia: Deferred Pelvic: Deferred Rectal: Deferred Extremities: Other (Patient utilizes a wheelchair) Neurologic: Other (Patient suffers from dementia) Cerebellar Function: NOT DONE Reflexes: NOT DONE Skin: Dry, Normal Color, Warm Lymphatic: No Adenopathy Was a procedure done? Was a procedure done?: No CP Differential Dx Differential Diagnosis: Other (Hypertensive urgency, sepsis, electrolyte abnormality, urinary tract infection) X-Ray, Labs, Meds, VS Vital Signs Date Time Temp Pulse Resp B/P (MAP) Pulse Ox O2 Delivery O2 Flow Rate FiO2 10/22/24 01:15 210/73 10/22/24 01:10 Room Air* 0 21 10/22/24 01:09 97.6 62 14 210/73 (118) 96 97.6 10/22/24 00:48 64 10/21/24 22:31 98.7 66 18 199/59 97 98.7 Lab Test 10/21/24 22:56 Range/Units White Blood Count 6.4 4.4-10.8 10^3/uL Red Blood Count 4.51 4.0-5.20 10^6/uL Hemoglobin 13.6 12.2-16.2 g/dL Hematocrit 39.6 36.0-46.0 % Mean Corpuscular Volume 87.8 80.0-100.0 fL Mean Corpuscular Hemoglobin 30.2 28.0-32.0 pg Mean Corpuscular Hemoglobin Concent 34.3 32.0-36.0 g/dL Red Cell Distribution Width 17.6 H 11.8-14.3 % Platelet Count 224 140-450 10^3/uL Mean Platelet Volume 8.6 6.9-10.8 fL Neutrophils (%) (Auto) 74.7 37.0-80.0 % Lymphocytes (%) (Auto) 9.0 L 10.0-50.0 % Monocytes (%) (Auto) 14.6 H 0.0-12.0 % Eosinophils (%) (Auto) 1.3 0.0-7.0 % Basophils (%) (Auto) 0.4 0.0-2.0 % Neutrophils # (Auto) 4.8 1.6-8.6 10 ^3/uL Lymphocytes # (Auto) 0.6 0.4-5.4 10 ^3/uL Monocytes # (Auto) 0.9 0-1.3 10 ^3/uL Eosinophils # (Auto) 0.1 0-0.8 10 ^3/uL Basophils # (Auto) 0 0-0.2 10 ^3/uL Nucleated Red Blood Cells 0.0 % Platelet Estimate Adequate Sodium Level 133 L 136-145 mmol/L Potassium Level 3.8 3.5-5.1 mmol/L Chloride Level 93 L 98-107 mmol/L Carbon Dioxide Level 29 20-31 mmol/L Anion Gap 11 5-15 Blood Urea Nitrogen 45 H 9-23 mg/dL Creatinine 4.28 H 0.550-1.02 mg/dL Glomerular Filtration Rate Calc 11 >90 mL/min BUN/Creatinine Ratio 10.5 10.0-20.0 Serum Glucose 152 H 74-106 mg/dL Calcium Level 8.9 8.7-10.4 mg/dL Troponin I High Sensitivity 17 </=34 ng/L Current Medications Medications (Trade) Dose Ordered Sig/Wayne Route Start Time Stop Time Status Last Admin Clonidine HCl (Catapres Tablet) 0.2 mg ONCE ONCE PO 10/21/24 23:00 10/21/24 23:01 DC 10/22/24 01:15 X-Ray, Labs, Meds, VS Comment All studies performed at the ED were evaluated by me personally. Serum studies were unremarkable for any systemic concerns. Patient was unable to provide us with a urine and family stated they did not want to wait for urine test results as the patient did not have any urinary symptomatic concerns. Family stated that if she presents with a any urinary discomfort, they will return to the ED for evaluation. Patient was given clonidine and blood pressure had returned to normal at time of discharge. Advised sent home with emergent medication but that the patient needs to follow up with her primary care provider for discussions related to today's visit and improvement in what is currently poorly controlled hypertension. Time of Reevaluation: :29 Reevaluation 1ST: Improved Consultation: PCP Patient Education/Counseling: Diagnosis, Treatment Family Education/Counseling: Diagnosis, Treatment SEPSIS Sepsis Screen Date sepsis recognized/suspect: Oct 21, 2024 Time Sepsis recognized/suspect: 2230 Recent Procedure: No On Antibiotic Therapy: No Respiratory Rate >20: No Heart Rate >90: No Temp<36 C (96.8 F) or >38.3 C: No SBP <90 or MAP <65 mmHG: No New Acute Mental Status Change: No Is the patient on CPAP, BIPAP,: No Physician Orders Urinalysis (10/21/24 22:46) Electrocardigram (10/21/24 22:46) Vital Signs Date Time Temp Pulse Resp B/P (MAP) Pulse Ox O2 Delivery O2 Flow Rate FiO2 10/22/24 01:15 210/73 10/22/24 01:10 Room Air* 0 21 10/22/24 01:09 97.6 62 14 210/73 (118) 96 97.6 10/22/24 00:48 64 10/21/24 22:31 98.7 66 18 199/59 97 98.7 Laboratory Tests Test 10/21/24 22:56 White Blood Count 6.4 10^3/uL (4.4-10.8) Medications Medications Dose Ordered Sig/Wayne Route Start Time Stop Time Status Last Admin Dose Admin Clonidine HCl 0.2 mg ONCE ONCE PO 10/21/24 23:00 10/21/24 23:01 DC 10/22/24 01:15 Departure 1 Departure Time of Disposition: : Impression: Primary Impression: Hypertensive urgency Disposition: 01 HOME / SELF CARE / HOMELESS Condition: Stable Additional Instructions: Advise utilize medication on an emergent basis as directed. If patient begins to displays signs of urinary discomfort or pain, please return to ED for evaluation. Patient should follow up with the primary care provider for discussions related to today's visit as well as improved blood pressure management. e-Prescriptions Clonidine Hydrochloride (Clonidine Hcl) 0.2 Mg Tab 1 TAB PO Q12HP PRN, #15 TAB 0 Refills To be used if systolic pressure is above 160 or diastolic pressure is above 90. Prov: LILA SAAVEDRA PAC 10/22/24 Discharged With: Self, Relative Critical Care Note Critical Care Time?: No Stability Stability form required: No Heart Score Heart Score: Heart Score Response (Comments) Value History N/A 0 EKG N/A 0 Age N/A 0 Risk Factors N/A 0 Troponin N/A 0 Total 0 LILA SAAVEDRA [facility] Oct 22, 2024 01:31
[2024-10-22 01:57] VITALS: BP 115/80; PULSE 56; RESP 15; O2SAT 97
--- NOTE | 2024-10-23 10:15 | ECG ---
[facility] Test Date: 2024-10-22 Test Time: 00:48:31 Pat Name: KANDIS CASTELLON Department: Room: Gender: F Manager Cable: BAM : 1960 Requested By: LILA SAAVEDRA Order Number: [id number] Reading MD: Amrit Weiss Measurements Intervals Ruth Rate: 64 P: 49 AL: 164 QRS: 16 QRSD: 88 T: 3 QT: 455 QTc: 470 Interpretive Statements Sinus rhythm Borderline T abnormalities, anterior leads Baseline wander in lead(s) II,III,aVF Electronically Signed On 10-23-2024 22:58:31 PDT by Amrit Weiss Please click the below link to view image of tracing.
== END 2024-10-22 02:10 | disposition home or self-care (01) ==
LOC: ER 22:29
DX: I16.0 Hypertensive urgency (principal); I12.0 Hypertensive chronic kidney disease with stage 5 chronic kidney disease or end stage renal disease; E11.22 Type 2 diabetes mellitus with diabetic chronic kidney disease; N18.6 End stage renal disease; Z88.0 Allergy status to penicillin; Z79.899 Other long term (current) drug therapy
CPT/HCPCS: 36415; 80048; 84484; 85025; 93005